=== PATIENT | male | born 1930 | race Caucasian/White ===

== ENCOUNTER 2017-10-17 22:48 | Emergency (ER) | payer MEDICARE, BC ==
[~2017-10-17] VITALS: Ht 165.1 cm; Wt 72.6 kg
[~2017-10-17 22:48] MED LIST: Z.0.ATENOLOL25 MG; Z.0.CRESTOR40 MG; Z.0.OMEPRAZOLE20 MG; Z.1.METFORMIN HCL100; cholecalciferol
[2017-10-17] MEDS ORDERED: LABETALOL HCL IV 5 MG/ML 20ML MDV IV STA (23:12)
[2017-10-17] MEDS ORDERED: OXYMETAZOLINE HCL 0.05% NAS 1 SPRAY BTL ONE (23:30)
[2017-10-17 23:32] LABS: BASOPHILS # (AUTO) 0.1 (0.0-0.1); EOSINOPHILS # (AUTO) 0.1 (0.0-0.4); EOSINOPHILS % 2.1 % (0.0-6.0); HEMATOCRIT 41.1 % (38.2-49.6); HEMOGLOBIN 13.9 g/dL (14.0-18.0); LYMPHOCYTES % 34.8 % (18.0-39.1); MEAN CORPUSCULAR HEMOGLOBIN 30.9 pg (28-32); MEAN CORPUSCULAR HGB CONC 33.8 g/dL (31-35); MEAN CORPUSCULAR VOLUME 91.3 fL (81-99); MONOCYTES # (AUTO) 0.5 (0.2-0.8); MONOCYTES % 8.4 % (4.4-11.3); NEUTROPHILS # (AUTO) 3.1 (2.1-6.9); NEUTROPHILS % 53.2 % (38.7-80.0); PLATELET COUNT 161 x10e3/uL (140-360); RED CELL DISTRIBUTION WIDTH 14.7 % (11.7-14.4)
[2017-10-17 23:36] LABS: INR 1.37; PROTHROMBIN TIME 17.6 seconds (11.9-14.5)
[2017-10-17 23:37] LABS: PARTIAL THROMBOPLASTIN TIME 38.7 seconds (23.8-35.5)
[2017-10-17 23:44] LABS: ALANINE AMINOTRANSFERASE 24 IU/L (0-55); ALBUMIN 3.9 g/dL (3.5-5.0); ALBUMIN/GLOBULIN RATIO 1.1 (0.8-2.0); ALKALINE PHOSPHATASE 60 IU/L (40-150); ANION GAP 15.2 mmol/L (8-16); BLOOD UREA NITROGEN 18 mg/dL (7-26); BUN/CREATININE RATIO 18 (6-25); CALCIUM 9.4 mg/dL (8.4-10.2); CARBON DIOXIDE 26 mmol/L (22-29); CHLORIDE 103 mmol/L (98-107); CREATINE KINASE 72 IU/L (30-200); CREATININE, SERUM 1.01 mg/dL (0.72-1.25); EST GLOMERULAR FILTRATION RATE > 60 ML/MIN (60-); GLUCOSE 234 mg/dL (74-118); POTASSIUM 3.2 mmol/L (3.5-5.1); SODIUM 141 mmol/L (136-145)
[2017-10-17 23:50] LABS: TROPONIN I 0.011 ng/mL (0-0.300)
--- NOTE | 2017-10-17 23:52 | Diagnostic Imaging Report ---
EXAM: CHEST SINGLE (PORTABLE), AP 1 view DATE: 10/17/2017 11:12 PM Time stamp on exam: 2012 INDICATION: Epistaxis COMPARISON: AP view of the chest July 03, 2010 FINDINGS: LINES/TUBES: None LUNGS: No consolidations or edema. Stable left lower lobe scarring. PLEURA: No effusions or pneumothorax. HEART AND MEDIASTINUM: Normal size and contour. BONES AND SOFT TISSUES: No acute findings. Median sternotomy wires, stable appearance. IMPRESSION: No acute thoracic abnormality. Signed by: Dr. Amada Simmons M.D. on 10/17/2017 11:48 PM
[2017-10-17] MEDS ORDERED: POTASSIUM CHLORIDE 20 MEQ TAB CR PO STA (23:59)
== END 2017-10-18 00:47 | disposition home or self-care (01) ==
LOC: ER 22:48
DX: R04.0 Epistaxis (principal); I10 Essential (primary) hypertension; E11.9 Type 2 diabetes mellitus without complications; I48.91 Unspecified atrial fibrillation; I51.9 Heart disease, unspecified; Z95.1 Presence of aortocoronary bypass graft; Z85.828 Personal history of other malignant neoplasm of skin; Z87.891 Personal history of nicotine dependence
CPT/HCPCS: 36415; 71010; 80053; 82550; 82553; 83735; 84484; 85025; 85610; 85730; 93005; 99283; J3490

== ENCOUNTER 2017-11-07 23:45 | Emergency (ER) | payer MEDICARE, BC ==
[~2017-11-07] VITALS: Ht 165.1 cm; Wt 72.6 kg
[2017-11-08] MEDS ORDERED: CLONIDINE HCL 0.2 MG TAB ONE (00:11)
[2017-11-08] MEDS ORDERED: CLONIDINE HCL 0.2 MG TAB PO ONE (00:15)
[2017-11-08 01:21] VITALS: BP 121/58
== END 2017-11-08 01:25 | disposition home or self-care (01) ==
LOC: ER 23:45
DX: I10 Essential (primary) hypertension (principal); E11.9 Type 2 diabetes mellitus without complications; I48.91 Unspecified atrial fibrillation
CPT/HCPCS: 99282

== ENCOUNTER 2017-11-29 19:47 | Emergency (ER) | payer MEDICARE, BC ==
[~2017-11-29] VITALS: Ht 165.1 cm; Wt 72.6 kg
--- OUTSIDE RECORDS SUMMARY | 2017-11-29 19:50 | XMS REPORT | Clinical Summary ---
Author Author [facility] Organization [facility] Address Unknown Phone Unavailable Care Team Providers Care Staff Internist Office Based Only Name Role Phone Abe Najera MD PCP Allergies Active Allergy Reactions Severity Noted Date Comments Ciprofloxacin Hcl Swelling High 05/22/2016 Codeine Other (See Comments) High 05/22/2016 Pt state he breaks out in spots Aspartame Other (See Comments) 05/27/2017 vertigo Current Medications Prescription Sig. Disp. Refills Start End Date Status Date amIODarone (PACERONE) 200 Take 200 mg by mouth Active MG tablet daily. atorvastatin (LIPITOR) 80 Take 80 mg by mouth Active MG tablet daily. omeprazole (PriLOSEC) 20 Take 20 mg by mouth Active MG capsule daily. metFORMIN (GLUCOPHAGE) Take 500 mg by mouth 2 Active 500 mg tablet (two) times a day with meals. VIT B COMPLEX Take by mouth. Active NO.12/NIACIN,B3, (VITAMIN B COMPLEX NO.12-NIACIN ORAL) traZODone (DESYREL) 50 MG Take 50 mg by mouth Active tablet nightly as needed for sleep. furosemide (LASIX) 40 mg Take 40 mg by mouth 2 Active tablet (two) times a day. rivaroxaban (XARELTO) 20 Take 20 mg by mouth. Active mg tablet atenolol (TENORMIN) 25 MG Take 25 mg by mouth 2 06/03/20 Discontin tablet (two) times a day. 17 ued hydrALAZINE (APRESOLINE) Take 1 tablet (10 mg 30 tablet 0 10/01/20 10/16/20 10 MG tablet total) by mouth 2 (two) 17 17 times a day for 15 days. Active Problems No known active problems Encounters Date Type Specialty Care Team Description 10/01/2017 Emergency Emergency Medicine Jayson Hoover MD Secondary hypertension (Primary Dx) 06/01/2017 Hospital Procedural Cardiology Meseret Geller MD Encounter for Encounter cardioversion procedure;Persistent atrial fibrillation 06/01/2017 Hospital Procedural Cardiology Meseret Geller MD Encounter 06/01/2017 Anesthesia Procedural Cardiology Duane Gallagher Event MD 06/01/2017 Ancillary Procedural Cardiology Meseret Geller MD Encounter for Orders cardioversion procedure 06/01/2017 Procedure Pass Procedural Cardiology 06/01/2017 Surgery Procedural Cardiology Meseret Geller MD Ep cardioversion w eric [36351 (CPT )] 05/27/2017 Hospital Radiology Meseret Geller MD Encounter 05/27/2017 Pre-Admit Pre-Admission Testing Meseret Geller MD Persistent atrial Testing fibrillation (Primary Dx) Appointment after 11/28/2016 Family History Medical History Relation Name Comments Heart disease Mother Relation Name Status Comments Father Alive Mother Alive Social History Tobacco Use Types Packs/Day Years Used Date Former Smoker 0 Smokeless Tobacco: Never Used Tobacco Cessation: Counseling Given: Yes Alcohol Use Drinks/Week oz/Week Comments No Sex Assigned at Date Recorded Not on file Last Filed Vital Signs Vital Sign Reading Time Taken Blood Pressure 200/89 10/01/2017 4:45 PM RETAIL PERFORMANCE SPECIALIST Pulse 84 10/01/2017 4:45 PM RETAIL PERFORMANCE SPECIALIST Temperature 37.2 C (98.9 F) 10/01/2017 2:47 PM RETAIL PERFORMANCE SPECIALIST Respiratory Rate 35 10/01/2017 4:45 PM RETAIL PERFORMANCE SPECIALIST Oxygen Saturation 98% 10/01/2017 4:45 PM RETAIL PERFORMANCE SPECIALIST Inhaled Oxygen - - Concentration Weight 75.8 kg (167 lb) 10/01/2017 2:50 PM RETAIL PERFORMANCE SPECIALIST Height 165.1 cm (5' 5") 10/01/2017 2:50 PM RETAIL PERFORMANCE SPECIALIST Body Mass Index 27.79 10/01/2017 2:50 PM RETAIL PERFORMANCE SPECIALIST Plan of Treatment Health Maintenance Due Date Last Done Comments ZOSTER VACCINE 1992 PNEUMOCOCCAL 1997 POLYSACCHARIDE VACCINE AGE 65 AND OVER PNEUMOCOCCAL-13 1997 INFLUENZA VACCINE 05/25/2017 Procedures Procedure Name Priority Date/Time Associated Diagnosis Comments ME CRITICAL CARE, E/M Routine 10/01/2017 Results for this 30-74 MINUTES 9:28 PM RETAIL PERFORMANCE SPECIALIST procedure are in the results section. EP CARDIOVERSION W ERIC Routine 06/01/2017 Results for this 10:41 AM CDT procedure are in the results section. ECHOCARDIOGRAM Routine 06/01/2017 Encounter for Results for this TRANSESOPHAGEAL W 10:30 AM CDT cardioversion procedure procedure are in the [facility] results section. after 11/28/2016 Results * ECG ED Preliminary Interpretation - NOT AN ORDER (10/01/2017 9:28 PM) Narrative Jayson Hoover MD 10/01/20179:28 PM ECG ED Preliminary Interpretation - Not an Order Performed by: JAYSON HOOVER Authorized by: JAYSON HOOVER ECG reviewed by ED Physician in the absence of a post tensioning ironworker helper: yes Interpretation: Interpretation: normal Rate: ECG rate:83 ECG rate assessment: normal Rhythm: Rhythm: sinus rhythm Ectopy: Ectopy: none QRS: QRS axis:Normal Conduction: Conduction: normal ST segments: ST segments:Normal T waves: T waves: inverted Inverted:III * Critical Care (10/01/2017 9:28 PM) Narrative Jayson Hoover MD 10/01/20179:28 PM Critical Care Performed by: JAYSON HOOVER Authorized by: JAYSON HOOVER Critical care provider statement: Critical care time (minutes):33 Critical care time was exclusive of:Separately billable procedures and treating other patients Critical care was necessary to treat or prevent imminent or life-threatening deterioration of the following conditions:Circulatory failure Critical care was time spent personally by me on the following activities:Development of treatment plan with patient or surrogate, discussions with primary provider, evaluation of patient's response to treatment, examination of patient, obtaining history from patient or surrogate, re-evaluation of patient's condition, pulse oximetry, ordering and review of radiographic studies, ordering and review of laboratory studies and ordering and performing treatments and interventions Mickey 'yes' if you are taking over critical care for this patient from another provider.: no * Estimated GFR (10/01/2017 3:16 PM) Only the most recent of 2 results within the time period is included. Component Value Ref Range GFR Non Af Amer 71 mL/min/1.73 m2 GFR Af Amer 86 mL/min/1.73 m2 Comment: Chronic kidney disease: <60 mL/min/1.73m2 Kidney failure: <15 mL/min/1.73m2 The estimated GFR is calculated from the IDMS-traceable Modification of Diet in Renal Disease Equation. The accuracy of the calculation is poor when the creatinine is normal. Calculated values >90 mL/min/1.73m2 are not reported. This equation has not been validated in children (<18 years), women, the elderly (>70 years), or ethnic groups other than Caucasians and Americans. Specimen Performing Laboratory Plasma specimen [facility] DEPARTMENT OF PATHOLOGY AND [facility] [address] [place] [address] * Troponin (10/01/2017 3:16 PM) Component Value Ref Range Troponin <0.300 0.000 - 0.300 ng/mL Comment: 0.30 - 1.49 ng/ml May indicate increased risk of acute coronary syndrome. >=1.5 ng/ml Consistent with acute myocardial infarction. The diagnostic value of a single normal or non-diagnostic result is questionable. Serial samples at 2-6 hour intervals are required to rule out acute myocardial injury. Specimen Performing Laboratory Plasma specimen [facility] PATHOLOGY AND [facility] [address] [place] [address] * CBC with platelet and differential (10/01/2017 3:16 PM) Component Value Ref Range WBC 5.39 4.50 - 11.00 k/uL RBC 4.16 (L) 4.40 - 6.00 m/uL HGB 12.5 (L) 14.0 - 18.0 g/dL HCT 37.2 (L) 41.0 - 51.0 % MCV 89.4 82.0 - 100.0 fL MCH 30.0 27.0 - 34.0 pg MCHC 33.6 31.0 - 37.0 g/dL RDW - SD 49.0 37.0 - 55.0 fL MPV 10.2 8.8 - 13.2 fL Platelet count 143 (L) 150 - 400 k/uL Nucleated RBC 0.00 /100 WBC Neutrophils 56.9 39.0 - 69.0 % Lymphocytes 30.1 25.0 - 45.0 % Monocytes 9.1 0.0 - 10.0 % Eosinophils 2.6 0.0 - 5.0 % Basophils 0.9 0.0 - 1.0 % Immature granulocytes 0.4Comment: "Immature granulocytes" 0.0 - 1.0 % (promyelocytes, myelocytes, metamyelocytes) Specimen Performing Laboratory Blood [facility] DEPARTMENT OF PATHOLOGY AND [facility]OMIC MEDICINE [address] [place] [address] * Basic metabolic panel (10/01/2017 3:16 PM) Component Value Ref Range Sodium 140 135 - 148 mEq/L Potassium 4.0 3.5 - 5.0 mEq/L Chloride 101 98 - 112 mEq/L CO2 24 24 - 31 mEq/L Anion gap 15 7 - 15 mEq/L Comment: Starting from January , anion gap calculation no longer incorporates potassium. Please note the change. BUN 22 8 - 23 mg/dL Creatinine 1.0 0.7 - 1.2 mg/dL Glucose 200 (H) 65 - 99 mg/dL Calcium 9.3 8.8 - 10.2 mg/dL Specimen Performing Laboratory Plasma specimen [facility] DEPARTMENT OF PATHOLOGY AND GENOMIC MEDICINE [address] [place] [address] [place] [address] * ECG 12 lead (10/01/2017 2:55 PM) Only the most recent of 2 results within the time period is included. Component Value Ref Range Ventricular rate 83 Atrial rate 83 ME interval 186 QRSD interval 88 QT interval 408 QTC interval 479 P axis 1 77 QRS axis 1 52 T wave axis -9 EKG impression Normal sinus rhythm-Cannot rule out Anterior infarct , age undetermined-Abnormal ECG-In automated comparison with ECG of 27-MAY-2017 14:11,-Sinus rhythm has replaced Atrial fibrillation- Specimen Performing Laboratory [facility] [address] [place] [address] * Cv electrophysiology procedure (06/01/2017 10:41 AM) Specimen Performing Laboratory [facility] [address] [place] [address] Narrative No evidence of JANNY or LA thrombus * Echocardiogram transesophageal (06/01/2017 10:30 AM) Specimen Performing Laboratory [facility] [address] [place] [address] Narrative The left ventricle chamber size is normal. Right ventricular size is normal. No pericardial effusion Structurally normal mitral valve. Structurally normal tricuspid valve. Structurally normal pulmonic valve. LA size is normal. The left atrium size by volume is normal. The left atrial appendage appears normal. The inter-atrial septum is normal. There is no evidence of patent foramen ovale. * POC glucose (06/01/2017 8:49 AM) Component Value Ref Range POC glucose 152 (H) 65 - 99 mg/dL Specimen Performing Laboratory [facility] DEPARTMENT OF PATHOLOGY AND GENOMIC MEDICINE [address] [place] [address] * Partial thromboplastin time, activated (06/01/2017 8:17 AM) Only the most recent of 2 results within the time period is included. Component Value Ref Range PTT 41.0 (H) 23.0 - 36.0 sec Comment: PTT therapeutic range for unfractionated heparin is 61.0-112.0 seconds which corresponds to Anti-Xa 0.3-0.7 U/ml. Specimen Performing Laboratory Blood [facility] DEPARTMENT OF PATHOLOGY AND [facility] MEDICINE [address] [place] [address] [place] [address] * Prothrombin time with INR (06/01/2017 8:17 AM) Only the most recent of 2 results within the time period is included. Component Value Ref Range Prothrombin time 32.5 (H) 12.0 - 15.0 sec INR 3.1 Comment: The International Normalized Ratio (INR) is a therapeutic monitoring tool for patients who are stable on oral anticoagulant therapy. An INR of 2.0-3.0 is suggested for deep vein thrombosis/pulmonary embolism. Specimen Performing Laboratory Blood [facility] DEPARTMENT OF PATHOLOGY AND [facility] [address] [place] [address] [place] [address] * XR Chest 2 Vw (05/27/2017 2:37 PM) Specimen Performing Laboratory [facility] [address] [place] [address] Narrative EXAMINATION:XR CHEST 2 VW CLINICAL HISTORY:I48.1 Persistent atrial fibrillation, preop COMPARISON:None Chest AP portable dated May 27, 2017, time 1423 hours: Heart is enlarged. Changes from a sternotomy are noted. The mediastinum is unremarkable. There is scarring or atelectasis at the lung bases. There is a small amount of pleural fluid bilaterally. IMPRESSION: 1. Clinically, bibasilar atelectasis or scarring with small bilateral pleural fluid. 2. Mildly increased pulmonary vasculature suggesting mild interstitial edema [id number] Procedure Note Hm Interface, Radiology Results Incoming - 05/27/2017 2:55 PM CDT EXAMINATION: XR CHEST 2 VW CLINICAL HISTORY: I48.1 Persistent atrial fibrillation, preop COMPARISON: None Chest AP portable dated May 27, 2017, time 1423 hours: Heart is enlarged. Changes from a sternotomy are noted. The mediastinum is unremarkable. There is scarring or atelectasis at the lung bases. There is a small amount of pleural fluid bilaterally. IMPRESSION: 1. Clinically, bibasilar atelectasis or scarring with small bilateral pleural fluid. 2. Mildly increased pulmonary vasculature suggesting mild interstitial edema [id number] * CBC hemogram (05/27/2017 1:48 PM) Component Value Ref Range WBC 6.96 4.50 - 11.00 k/uL RBC 3.85 (L) 4.40 - 6.00 m/uL HGB 9.2 (L) 14.0 - 18.0 g/dL HCT 30.9 (L) 41.0 - 51.0 % MCV 80.3 (L) 82.0 - 100.0 fL MCH 23.9 (L) 27.0 - 34.0 pg MCHC 29.8 (L) 31.0 - 37.0 g/dL RDW - SD 50.1 37.0 - 55.0 fL MPV 11.0 8.8 - 13.2 fL Platelet count 185 150 - 400 k/uL Nucleated RBC 0.00 /100 WBC Specimen Performing Laboratory Blood [facility] DEPARTMENT OF PATHOLOGY AND GENOMIC MEDICINE [address] [place] [address] * Comprehensive metabolic panel (05/27/2017 1:48 PM) Component Value Ref Range Sodium 142 135 - 148 mEq/L Potassium 3.9 3.5 - 5.0 mEq/L Chloride 99 98 - 112 mEq/L CO2 29 24 - 31 mEq/L Anion gap 14 7 - 15 mEq/L Comment: Starting from January , anion gap calculation no longer incorporates potassium. Please note the change. BUN 23 8 - 23 mg/dL Creatinine 0.8 0.7 - 1.2 mg/dL Glucose 126 (H) 65 - 99 mg/dL Calcium 9.8 8.8 - 10.2 mg/dL Protein 7.1 6.3 - 8.3 g/dL Comment: [place] 4.6-7.0 g/dL 1 week 4.4-7.6 g/dL 7 months-1year 5.1-7.3 g/dL 1-2 years 5.6-7.5 g/dL >3 years 6.0-8.0 g/dL 18-150 6.3-8.3 g/dL Albumin 4.3 3.5 - 5.0 g/dL A/G ratio 1.5 0.7 - 3.8 Alkaline phosphatase 65 40 - 129 U/L AST 28 10 - 50 U/L ALT 45 5 - 50 U/L Total bilirubin 0.6 0.0 - 1.2 mg/dL Specimen Performing Laboratory Plasma specimen [facility] DEPARTMENT OF PATHOLOGY AND GENOMIC MEDICINE [address] [place] [address] after 11/28/2016 Insurance Payer Benefit Subscriber ID Type Phone Address Plan / Group MEDICARE MEDICARE [id number] Medicare [place], [place] PART A AND B BCBS BCBS [id number] PPO CHOICE PPO/[place] [address]
--- OUTSIDE RECORDS SUMMARY | 2017-11-29 19:50 | XMS REPORT ---
Author Author [facility] Address Unknown Phone Unavailable Care Team Providers Care Oncology Rn Name Role Phone TISH JOHNSON Unavailable Unavailable Problems This patient has no known problems. Allergies, Adverse Reactions, Alerts This patient has no known allergies or adverse reactions. Medications This patient has no known medications. Results Test Description Test Time Test Comments Text Results Atomic Results Result Comments CHEST SINGLE (PORTABLE) [address] [address] Patient Name: ELHAM CLEMENTE MR #: [id number] : 1930 Age/Sex: 86/M Req #: [id number] Adm Physician: Ordered by: TISH JOHNSON MD Report #: [id number] Location: ER Room/Bed: Procedure: [id number] DX/CHEST SINGLE (PORTABLE) Exam Date: 10/17/17 Exam Time: 2230 REPORT STATUS: Signed EXAM: CHEST SINGLE (PORTABLE), AP 1 view DATE: 10/17/2017 11:12 PM Time stamp on exam: 2011 INDICATION: Epistaxis COMPARISON: AP view of the chest July 03, 2010 FINDINGS: LINES/TUBES: None LUNGS: No consolidations or edema. Stable left lower lobe scarring. PLEURA: No effusions or pneumothorax. HEART AND MEDIASTINUM: Normal size and contour. BONES AND SOFT TISSUES: No acute findings. Median sternotomy wires, stable appearance. IMPRESSION: No acute thoracic abnormality. Signed by: Dr. Lalo Bledsoe M.D. on 10/17/2017 11:48 PM Dictated By: LALO BLEDSOE MD 49 Transcribed By: CHARI on 10/17/172347 COPY TO: TISH JOHNSON MD
[2017-11-29] MEDS ORDERED: LIDOCAINE 1% W/EPINEPHRINE 20 ML VIAL ONE (20:57)
[2017-11-29] MEDS ORDERED: CLONIDINE HCL 0.1 MG TAB PO ONE ×2 (21:00→21:15)
[2017-11-29] MEDS ORDERED: CLONIDINE HCL 0.1 MG TAB ONE (21:02)
[2017-11-29] MEDS ORDERED: LIDOCAINE 1% W/EPINEPHRINE 20 ML VIAL INJ ONE (21:15)
[2017-11-29 21:44] VITALS: BP 158/75
== END 2017-11-29 21:45 | disposition home or self-care (01) ==
LOC: ER 19:47
DX: K91.840 Postprocedural hemorrhage of a digestive system organ or structure following a digestive system procedure (principal); I10 Essential (primary) hypertension
CPT/HCPCS: 99282

== ENCOUNTER 2017-11-30 00:36 | Emergency (ER) | payer MEDICARE, BC ==
[~2017-11-30] VITALS: Ht 165.1 cm; Wt 72.6 kg
--- OUTSIDE RECORDS SUMMARY | 2017-11-30 00:38 | XMS REPORT | Clinical Summary ---
Author Author [facility] Address Unknown Phone Unavailable Care Team Providers Care Green End Worker Name Role Phone Abe Najera MD PCP [...] Meseret Geller MD Ep cardioversion w eric [37984 (CPT )] 05/27/2017 Hospital Radiology Meseret Geller MD Encounter 05/27/2017 Pre-Admit Pre-Admission Testing Meseret Geller MD Persistent atrial Testing fibrillation (Primary Dx) Appointment after 11/29/2016 Family History Medical History Relation Name Comments [...] Taken Blood Pressure 200/89 10/01/2017 4:45 PM PRINTER ASSISTANT Pulse 84 10/01/2017 4:45 PM PRINTER ASSISTANT Temperature 37.2 C (98.9 F) 10/01/2017 2:47 PM PRINTER ASSISTANT Respiratory Rate 35 10/01/2017 4:45 PM PRINTER ASSISTANT Oxygen Saturation 98% 10/01/2017 4:45 PM PRINTER ASSISTANT Inhaled Oxygen - - Concentration Weight 75.8 kg (167 lb) 10/01/2017 2:50 PM PRINTER ASSISTANT Height 165.1 cm (5' 5") 10/01/2017 2:50 PM PRINTER ASSISTANT Body Mass Index 27.79 10/01/2017 2:50 PM PRINTER ASSISTANT Plan of Treatment Health Maintenance Due Date Last Done Comments ZOSTER VACCINE 1992 PNEUMOCOCCAL 1997 POLYSACCHARIDE VACCINE AGE 65 AND OVER PNEUMOCOCCAL-13 1997 INFLUENZA VACCINE 05/25/2017 Procedures Procedure Name Priority Date/Time Associated Diagnosis Comments [place] CRITICAL CARE, E/M Routine 10/01/2017 Results for this 30-74 MINUTES 9:28 PM PRINTER ASSISTANT procedure are in the results section. EP CARDIOVERSION W ERIC Routine 06/01/2017 Results for this 10:41 AM CDT procedure are in the results section. ECHOCARDIOGRAM Routine 06/01/2017 Encounter for Results for this TRANSESOPHAGEAL W 10:30 AM CDT cardioversion procedure procedure are in the AGITATED SALINE results section. after 11/29/2016 Results * ECG ED Preliminary Interpretation - NOT AN ORDER (10/01/2017 9:28 PM) Narrative Jayson Hoover MD 10/01/20179:28 PM ECG ED Preliminary Interpretation - Not an Order Performed by: JAYSON HOOVER Authorized by: JAYSON HOOVER ECG reviewed by ED Physician in the absence of a nitro worker: yes Interpretation: Interpretation: normal Rate: ECG rate:83 [...] and Americans. Specimen Performing Laboratory Plasma specimen [facility] DEPARTMENT OF PATHOLOGY AND [employer] MEDICINE [address] [place] [address] * Troponin (10/01/2017 3:16 PM) Component Value [...] myocardial injury. Specimen Performing Laboratory Plasma specimen [facility] PATHOLOGY AND [facility] [address] [place] [address] * CBC with platelet and differential (10/01/2017 [...] (promyelocytes, myelocytes, metamyelocytes) Specimen Performing Laboratory Blood [facility] DEPARTMENT OF PATHOLOGY AND GENOMIC MEDICINE [address] [place] [address] * Basic metabolic panel (10/01/2017 3:16 PM) [...] 10.2 mg/dL Specimen Performing Laboratory Plasma specimen [facility] DEPARTMENT OF PATHOLOGY AND GENOMIC MEDICINE [address] [place] [address] [place] [address] * ECG 12 lead (10/01/2017 2:55 PM) Only the most recent of 2 results within the time period is included. Component Value Ref Range Ventricular rate 83 Atrial rate 83 MN interval 186 QRSD interval 88 QT interval 408 QTC interval 479 P axis 1 77 QRS axis 1 52 T wave axis -9 EKG impression Normal sinus rhythm-Cannot rule out Anterior infarct , age undetermined-Abnormal ECG-In automated comparison with ECG of 27-MAY-2017 14:11,-Sinus rhythm has replaced Atrial fibrillation- Specimen Performing Laboratory [facility] M[facility] [address] [place] [address] * Cv electrophysiology procedure (06/01/2017 10:41 AM) Specimen Performing Laboratory [facility] [address] [place] [address] Narrative No evidence of JANNY or LA thrombus * Echocardiogram transesophageal (06/01/2017 10:30 AM) Specimen Performing Laboratory [facility] [address] [place] [address] Narrative The left ventricle chamber size is [...] 65 - 99 mg/dL Specimen Performing Laboratory [facility] DEPARTMENT OF PATHOLOGY AND GENOMIC MEDICINE [address] [place] [address] * Partial thromboplastin time, activated (06/01/2017 8:17 AM) Only the most recent of 2 results within the time period is included. Component Value Ref Range PTT 41.0 (H) 23.0 - 36.0 sec Comment: PTT therapeutic range for unfractionated heparin is 61.0-112.0 seconds which corresponds to Anti-Xa 0.3-0.7 U/ml. Specimen Performing Laboratory Blood [facility] DEPARTMENT OF PATHOLOGY AND [facility] MEDICINE [address] [place] [address] [place] [address] * Prothrombin time with INR (06/01/2017 8:17 [...] vein thrombosis/pulmonary embolism. Specimen Performing Laboratory Blood [facility] DEPARTMENT OF PATHOLOGY AND [facility] [address] [place] [address] [place] [address] * XR Chest 2 Vw (05/27/2017 2:37 PM) Specimen Performing Laboratory [facility] [address] [place] [address] Narrative EXAMINATION:XR CHEST 2 VW CLINICAL HISTORY:I48.1 [...] increased pulmonary vasculature suggesting mild interstitial edema [id number] Procedure Note Hm Interface, Radiology Results Incoming [...] increased pulmonary vasculature suggesting mild interstitial edema [id number] * CBC hemogram (05/27/2017 1:48 PM) Component [...] 0.00 /100 WBC Specimen Performing Laboratory Blood [facility] DEPARTMENT OF PATHOLOGY AND GENOMIC MEDICINE [address] [place] [address] * Comprehensive metabolic panel (05/27/2017 1:48 PM) [...] Protein 7.1 6.3 - 8.3 g/dL Comment: [place] 4.6-7.0 g/dL 1 week 4.4-7.6 g/dL 7 [...] 1.2 mg/dL Specimen Performing Laboratory Plasma specimen [facility] DEPARTMENT OF PATHOLOGY AND GENOMIC MEDICINE [address] [place] [address] after 11/29/2016 Insurance Payer Benefit Subscriber ID Type Phone Address Plan / Group MEDICARE MEDICARE [id number] Medicare [place], [place] PART A AND B BCBS BCBS [id number] PPO CHOICE PPO/MANJIT [place] [address]
--- OUTSIDE RECORDS SUMMARY | 2017-11-30 00:39 | XMS REPORT | Continuity of Care Document ---
Author Author [facility] Organization [facility] Address [address] [place] [address] Phone Unavailable Care Team Providers Care Manager Wholesale Name Role Phone NO, PCP PCP Unavailable Insurance Providers Guarantor Elham Clemente Address [address] [place] [address] [place] [address] Email NONE Payer [employer] Employees Policy Number [id number] Subscriber's Name Elham Clemente Relationship 18 Self / Same As Patient Group Number [id number] Group Name RETIRED Effective Date 10 Payer Medicare A & B Policy Number [id number] Subscriber's Name Elham Clemente Relationship 18 Self / Same As Patient Group Number [id number] Group Name RETIRED Effective Date 97 Advance Directives Directive Response Recorded Date/Time Does the patient have an advance directive? No 07/03/10 12:55am If yes, is advance directive on file with [facility]? No 07/03/10 12:55am If not on file with [facility] will patient provide a copy? Yes 12/21/16 4:21pm Do you have a Directive to Physician? No 11/29/17 9:24pm Do you have a Medical Power of Fire Patroller? No 11/29/17 9:24pm Do you have an out of hospital Do Not Resuscitate Order? No 11/29/17 9:24pm Do you have any special needs we should be aware of? No 11/29/17 9:24pm Do you have a support person here with you today? No 11/29/17 9:24pm Did patient receive Notice of Privacy Practices? Yes 11/29/17 9:24pm Did patient receive patient rights and responsibilities? Yes 11/29/17 9:24pm Problems Medical Problem Onset Date Status Allergic reaction caused by a drug Unknown Acute Medications Current Home Medications Medication Dose Units Route Directions Days Qty Instructions Start Date Atenolol 25 Mg Tablet Cholecalciferol Metformin Hcl 1,000 Mg Tablet Omeprazole 20 Mg Capsule. Rosuvastatin Calcium (Crestor) 40 Mg Tablet Social History Smoking Status Start Date Stop Date Never Smoker Hospital Discharge Instructions No hospital discharge instruction information available. Plan of Care Discharge Date 11/29/17 9:45pm Disposition HOME, SELF-CARE Condition at Discharge Stable Instructions/Education Provided Hypertension Forms Provided Work/School Excuse Prescriptions See Medication Section Referrals [facility] Address: [address] [place] [id number] Additional Instructions/Education 1.follow up with dentist in 1-2 days without fail 2. return to ed as needed Functional Status No functional status information available. Allergies, Adverse Reactions, Alerts Allergen Type Severity Reaction Status Last Updated Codeine Allergy Mild Active 07/03/10 Immunizations No immunization information available. Vital Signs Acute Vital Signs Vital Response Date/Time Temperature (Fahrenheit) 98.0 degrees F (97.6 - 99.5) 11/29/2017 9:44pm Pulse Pulse Rate (adult) 69 bpm (60 - 90) 11/29/2017 9:44pm Respiratory Rate 18 bpm (12 - 24) 11/29/2017 9:44pm Blood Pressure 158/75 mm Hg 11/29/2017 9:44pm Height 5 ft 5 in 11/29/2017 7:49pm Weight 160 lb 11/29/2017 7:49pm Body Mass Index 26.6 kg/m^2 11/29/2017 7:49pm Results Laboratory Results Test Name Result Units Flags Reference Collection Date/Time Result Date/ Time Comments White Blood Count 5.74 x10e3/uL 4.8-10.8 10/17/2017 11:05pm 10/17/2017 11:35pm Red Blood Count 4.50 x10e6/uL 4.3-5.7 10/17/2017 11:05pm 10/17/2017 11: 35pm Hemoglobin 13.9 g/dL L 14.0-18.0 10/17/2017 11:05pm 10/17/2017 11:35pm Hematocrit 41.1 % 38.2-49.6 10/17/2017 11:05pm 10/17/2017 11:35pm Mean Corpuscular Volume 91.3 fL 81-99 10/17/2017 11:05pm 10/17/2017 11: 35pm Mean Corpuscular Hemoglobin 30.9 pg 28-32 10/17/2017 11:05pm 2016 11:35pm Mean Corpuscular Hemoglobin Concent 33.8 g/dL 31-35 10/17/2017 11:05pm 10/17/2017 11:35pm Red Cell Distribution Width 14.7 % H 11.7-14.4 10/17/2017 11:05pm 2016 11:35pm Platelet Count 161 x10e3/uL 140-360 10/17/2017 11:05pm 10/17/2017 11: 35pm Neutrophils (%) (Auto) 53.2 % 38.7-80.0 10/17/2017 11:05pm 10/17/2017 11:35pm Lymphocytes (%) (Auto) 34.8 % 18.0-39.1 10/17/2017 11:05pm 10/17/2017 11:35pm Monocytes (%) (Auto) 8.4 % 4.4-11.3 10/17/2017 11:05pm 10/17/2017 11: 35pm Eosinophils (%) (Auto) 2.1 % 0.0-6.0 10/17/2017 11:05pm 10/17/2017 11: 35pm Basophils (%) (Auto) 1.0 % 0.0-1.0 10/17/2017 11:05pm 10/17/2017 11: 35pm IM GRANULOCYTES % 0.5 % 0.0-1.0 10/17/2017 11:05pm 10/17/2017 11:35pm Neutrophils # (Auto) 3.1 2.1-6.9 10/17/2017 11:05pm 10/17/2017 11: 35pm Lymphocytes # (Auto) 2.0 1.0-3.2 10/17/2017 11:05pm 10/17/2017 11: 35pm Monocytes # (Auto) 0.5 0.2-0.8 10/17/2017 11:05pm 10/17/2017 11:35pm Eosinophils # (Auto) 0.1 0.0-0.4 10/17/2017 11:05pm 10/17/2017 11: 35pm Basophils # (Auto) 0.1 0.0-0.1 10/17/2017 11:05pm 10/17/2017 11:35pm Absolute Immature Granulocyte (auto 0.03 x10e3/uL 0-0.1 10/17/2017 11: 05pm 10/17/2017 11:35pm Prothrombin Time 17.6 seconds H 11.9-14.5 10/17/2017 11:05pm 10/17/2017 11:41pm Prothromb Time International Ratio 1.37 10/17/2017 11:05pm 2016 11:41pm Oral Anticoagulant Therapy INR Values: 1. Low Intensity Therapy 1.5 - 2.0 2. Moderate Intensity Therapy 2.0 - 3.0 3. High Intensity Therapy(1) 2.5 - 3.5 4. High Intensity Therapy(2) 3.0 - 4.0 5. Panic Value INR > 5.0 Activated Partial Thromboplast Time 38.7 seconds H 23.8-35.5 10/17/2017 11:05pm 10/17/2017 11:41pm Sodium Level 141 mmol/L 136-145 10/17/2017 11:05pm 10/17/2017 11:52pm Potassium Level 3.2 mmol/L L 3.5-5.1 10/17/2017 11:05pm 10/17/2017 11: 52pm Chloride Level 103 mmol/L 98-107 10/17/2017 11:05pm 10/17/2017 11:52pm Carbon Dioxide Level 26 mmol/L 22-10/17/2017 11:05pm 10/17/2017 11: 52pm Anion Gap 15.2 mmol/L 8-10/17/2017 11:05pm 10/17/2017 11:52pm Blood Urea Nitrogen 18 mg/dL 710/17/2017 11:05pm 10/17/2017 11: 52pm Creatinine 1.01 mg/dL 0.72-1.25 10/17/2017 11:05pm 10/17/2017 11:52pm BUN/Creatinine Ratio 18 6-25 10/17/2017 11:05pm 10/17/2017 11:52pm Estimat Glomerular Filtration Rate > 60 ML/MIN 60- 10/17/2017 11:05pm 10/17/2017 11:52pm Ranges were taken from the National Kidney Disease Education Program and the National Kid[employer] literature. Reference ranges: 60 or greater: Normal 16-59 (for 3 consecutive months): Chronic kidney disease 15 or less: Kidney failure Glucose Level 234 mg/dL H 74-118 10/17/2017 11:05pm 10/17/2017 11:52pm Calcium Level 9.4 mg/dL 8.4-10.2 10/17/2017 11:05pm 10/17/2017 11:52pm Magnesium Level 2.0 MG/DL 1.3-2.1 10/17/2017 11:05pm 10/17/2017 11: 52pm Total Bilirubin 0.6 mg/dL 0.2-1.2 10/17/2017 11:05pm 10/17/2017 11: 52pm Aspartate Amino Transf (AST/SGOT) 18 IU/L 5-34 10/17/2017 11:05pm 10/17 11:52pm Alanine Aminotransferase (ALT/SGPT) 24 IU/L 0-55 10/17/2017 11:05pm 11:52pm Total Protein 7.5 g/dL 6.5-8.1 10/17/2017 11:05pm 10/17/2017 11:52pm Albumin 3.9 g/dL 3.5-5.0 10/17/2017 11:05pm 10/17/2017 11:52pm Globulin 3.6 g/dL H 2.3-3.5 10/17/2017 11:05pm 10/17/2017 11:52pm Albumin/Globulin Ratio 1.1 0.8-2.0 10/17/2017 11:05pm 10/17/2017 11: 52pm Alkaline Phosphatase 60 IU/L 40-150 10/17/2017 11:05pm 10/17/2017 11: 52pm Creatine Kinase 72 IU/L 30-200 10/17/2017 11:05pm 10/17/2017 11:52pm Creatine Kinase MB 1.40 ng/mL 0.00-5.00 10/17/2017 11:05pm 10/17/2017 11:52pm Troponin I 0.011 ng/mL 0-0.300 10/17/2017 11:05pm 10/17/2017 11:52pm Procedures No procedure information available. Encounters Encounter Location Arrival/Admit Date Discharge/Depart Date Attending Provider Departed Emergency Room [facility] 11/29/17 7:47pm 9:45pm JEMAL PASTRANA MD Departed Emergency Room [facility] 11/07/17 11:45pm 11/08 1:25am JEMAL PASTRANA MD Departed Emergency Room [facility] 10/17/17 10:48pm 10/18 12:47am TISH OJHNSON MD
== END 2017-11-30 00:45 | disposition home or self-care (01) ==
LOC: ER 00:36
DX: K91.840 Postprocedural hemorrhage of a digestive system organ or structure following a digestive system procedure (principal); I10 Essential (primary) hypertension; E11.9 Type 2 diabetes mellitus without complications; I48.91 Unspecified atrial fibrillation; E78.5 Hyperlipidemia, unspecified
CPT/HCPCS: 99282

== ENCOUNTER 2018-06-24 00:21 | Emergency (ER) | payer MEDICARE, BC ==
[~2018-06-24] VITALS: Ht 165.1 cm; Wt 72.6 kg
[2018-06-24] MEDS ORDERED: CLONIDINE HCL 0.1 MG TAB PO ONE (01:00)
[2018-06-24 01:40] LABS: BASOPHILS # (AUTO) 0.1 (0.0-0.1); BASOPHILS % 0.6 % (0.0-1.0); EOSINOPHILS # (AUTO) 0.2 (0.0-0.4); EOSINOPHILS % 1.6 % (0.0-6.0); HEMATOCRIT 37.7 % (38.2-49.6); HEMOGLOBIN 12.8 g/dL (14.0-18.0); LYMPHOCYTES # (AUTO) 1.6 (1.0-3.2); LYMPHOCYTES % 16.1 % (18.0-39.1); MEAN CORPUSCULAR HEMOGLOBIN 31.4 pg (28-32); MEAN CORPUSCULAR VOLUME 92.6 fL (81-99); MONOCYTES # (AUTO) 0.7 (0.2-0.8); MONOCYTES % 7.6 % (4.4-11.3); NEUTROPHILS # (AUTO) 7.2 (2.1-6.9); NEUTROPHILS % 73.4 % (38.7-80.0); PLATELET COUNT 149 x10e3/uL (140-360); RED BLOOD COUNT 4.07 x10e6/uL (4.3-5.7); RED CELL DISTRIBUTION WIDTH 14.9 % (11.7-14.4)
[2018-06-24 02:01] LABS: ALANINE AMINOTRANSFERASE 29 IU/L (0-55); ALBUMIN 3.7 g/dL (3.5-5.0); ALBUMIN/GLOBULIN RATIO 1.1 (0.8-2.0); ALKALINE PHOSPHATASE 72 IU/L (40-150); ANION GAP 16.6 mmol/L (8-16); BLOOD UREA NITROGEN 22 mg/dL (7-26); BUN/CREATININE RATIO 22 (6-25); CALCIUM 9.4 mg/dL (8.4-10.2); CARBON DIOXIDE 22 mmol/L (22-29); CHLORIDE 103 mmol/L (98-107); CREATININE, SERUM 0.98 mg/dL (0.72-1.25); EST GLOMERULAR FILTRATION RATE > 60 ML/MIN (60-); GLUCOSE 151 mg/dL (74-118); LIPASE 31 U/L (8-78); POTASSIUM 3.6 mmol/L (3.5-5.1); SODIUM 138 mmol/L (136-145)
[2018-06-24 02:59] VITALS: BP 160/70
== END 2018-06-24 03:01 | disposition home or self-care (01) ==
LOC: ER 00:21
DX: G44.219 Episodic tension-type headache, not intractable (principal); I10 Essential (primary) hypertension
CPT/HCPCS: 36415; 80053; 82948; 83690; 83880; 85025; 93005; 99283

== ENCOUNTER → 2018-09-02 | Outpatient (CLI) | payer MEDICARE, BC ==
[~2018-09-02] MED LIST changes: +CLONIDINE; +IOPAMIDOL 370 MG/ML 200 ML INFUS..BTL INJ ONE; +IRON; +LISINOPRIL; +METOPROLOL; +PACERONE; +SODIUM CHLORIDE 0.9% 250ML 0 ML ONE; +SODIUM CHLORIDE 0.9% 250ML 250 ML ONE; +XARELTO
[2018-09-02 12:24] LABS: BLOOD UREA NITROGEN 14 mg/dL (7-26); BUN/CREATININE RATIO 14 (6-25); CREATININE, SERUM 0.98 mg/dL (0.72-1.25); EST GLOMERULAR FILTRATION RATE > 60 ML/MIN (60-)
--- NOTE | 2018-09-02 14:09 | Diagnostic Imaging Report ---
EXAMINATION: CT of the abdomen and pelvis with and without contrast. TECHNIQUE: CT images of the abdomen and pelvis were performed from the lung bases to the lesser trochanters before and after the intravenous administration of 150 cc of Isovue 300 and the oral administration of none. Dose modulation, iterative reconstruction, and/or weight based adjustment of the mA/kV was utilized to reduce the radiation dose to as low as reasonably achievable. COMPARISON: None. CLINICAL HISTORY:Hematuria DISCUSSION: ABDOMEN/PELVIS: LOWER THORAX:Prominent heart size. Lung bases clear. HEPATOBILIARY: No focal hepatic lesions. No biliary ductal dilatation.Cholecystectomy. SPLEEN: No splenomegaly. PANCREAS: No focal masses or ductal dilatation. ADRENALS: No adrenal nodules. KIDNEYS/URETERS: 8 cm complex cyst extending from the superior pole of the left kidney. Thin peripheral calcification anteriorly with thin rim of renal tissue. 2.5 cm simple cyst extending from the inferior pole left kidney. 2.8 cm complex cyst extending from the interpolar region of the right kidney. Internal Hounsfield unit 40 on precontrast and same on postcontrast. No solid enhancing lesions. Left renal calculi measuring 0.6 cm and within the left renal pelvis measuring 0.7 cm. Mild chronic appearing hydronephrosis bilaterally. PELVIC ORGANS/BLADDER: Bladder is unremarkable. Prostate is enlarged measuring 5.2 cm. PERITONEUM/RETROPERITONEUM: No free air or fluid. LYMPH NODES: No intra-abdominal,retroperitoneal, pelvic or inguinal lymphadenopathy. VESSELS: The celiac trunk,superior and inferior mesenteric and bilateral renal arteries are patent The portal, superior mesenteric and splenic veins are patent. GI TRACT: Colonic diverticulosis without inflammatory change. No obstruction. BONES AND SOFT TISSUE: Multilevel lower lumbar spondylosis. IMPRESSION: Left renal calculi with a 7 mm calculus in the left renal pelvis. Mild chronic appearing bilateral hydronephrosis. Bilateral mildly complex renal cysts. Mild prostate hypertrophy. Signed by: Dr. Jesús Cisneros M.D. on 09/02/2018 2:05 PM
== END ==
LOC: CT 10:17
PROVIDERS: ATTEND Urology
DX: R31.0 Gross hematuria (principal)
CPT/HCPCS: 36415; 74178; 82565; 84520; J7050; Q9967

== ENCOUNTER → 2018-10-17 | Day surgery (SDC) | payer MEDICARE, BC ==
[2018-10-11 11:53] LABS: BASOPHILS % 0.7 % (0.0-1.0); EOSINOPHILS # (AUTO) 0.1 (0.0-0.4); EOSINOPHILS % 1.8 % (0.0-6.0); LYMPHOCYTES # (AUTO) 1.6 (1.0-3.2); LYMPHOCYTES % 26.3 % (18.0-39.1); MEAN CORPUSCULAR HEMOGLOBIN 31.9 pg (28-32); MEAN CORPUSCULAR HGB CONC 34.2 g/dL (31-35); MEAN CORPUSCULAR VOLUME 93.4 fL (81-99); MONOCYTES # (AUTO) 0.5 (0.2-0.8); MONOCYTES % 8.8 % (4.4-11.3); NEUTROPHILS # (AUTO) 3.8 (2.1-6.9); NEUTROPHILS % 62.1 % (38.7-80.0); PLATELET COUNT 146 x10e3/uL (140-360); RED BLOOD COUNT 4.07 x10e6/uL (4.3-5.7); RED CELL DISTRIBUTION WIDTH 14.5 % (11.7-14.4)
[2018-10-11 12:25] LABS: ANION GAP 14.4 mmol/L (8-16); BLOOD UREA NITROGEN 22 mg/dL (7-26); BUN/CREATININE RATIO 21 (6-25); CALCIUM 9.3 mg/dL (8.4-10.2); CARBON DIOXIDE 27 mmol/L (22-29); CHLORIDE 103 mmol/L (98-107); CREATININE, SERUM 1.05 mg/dL (0.72-1.25); EST GLOMERULAR FILTRATION RATE > 60 ML/MIN (60-); GLUCOSE 220 mg/dL (74-118); POTASSIUM 3.4 mmol/L (3.5-5.1); SODIUM 141 mmol/L (136-145)
--- NOTE | 2018-10-11 12:42 | Diagnostic Imaging Report ---
EXAMINATION: PA and lateral views of the chest. COMPARISON: Single view chest 10/17/2017 CLINICAL HISTORY: Preoperative study for urological procedure DISCUSSION: Interval placement of a left subclavian approach triple lead cardiac device. Leads project over the expected regions of the right atrium, right ventricle, and coronary sinus. Lungs remain well-inflated and without focal consolidation, pleural effusion, or pneumothorax. Stable cardiomediastinal contour with multiple median sternotomy wires and atherosclerotic calcification of the thoracic aorta. No overt pulmonary edema. Calcified granulomata in the left lung apex. No acute osseous abnormality. IMPRESSION: No acute cardiopulmonary abnormality. Signed by: Dr. Gustavo Gilbert M.D. on 10/11/2018 12:39 PM
[~2018-10-17] MED LIST changes: +BELLADONNA/OPIUM 30 MG SUPP RC ONE; +CEFTRIAXONE SOD 1 GM/NS 50 ML 50 ML IV ONE; +DEXAMETHASONE SOD PHOS INJ 4 MG/ML VIAL ONE; +FENTANYL CITRATE/PF 100MCG/2 ML INJ ONE; +HYDRALAZINE HCL 20 MG/ML VIAL ONE; -IOPAMIDOL 370 MG/ML 200 ML INFUS..BTL INJ ONE; +IOPAMIDOL 610MG/1ML 300 MG/ML VIAL IV ONE; +LIDOCAINE HCL 2% LOCAL INJ 5 ML SDV VIAL INJ ONE; +METOPROLOL TARTRATE INJ 1 MG/ML VIAL ONE; +ONDANSETRON HCL INJ 2MG/ML 2ML 2 MG/ML VIAL ONE; +PROPOFOL IV EMULSION 10 MG/ML 20 ML VIAL ONE; +SEVOFLURANE INHAL SOLN 250 ML PEN BTL ONE; -SODIUM CHLORIDE 0.9% 250ML 0 ML ONE; -SODIUM CHLORIDE 0.9% 250ML 250 ML ONE; +TRAMADOL HCL 50 MG TAB ONE
--- OUTSIDE RECORDS SUMMARY | 2018-10-17 09:53 | XMS REPORT | Continuity of Care Document ---
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 05/22/2014 [facility] HEARING LOSS Active 05/22/2014 [facility] Arthritis Resolved Problem 08/15/2014 [facility] Diabetes Resolved Problem 08/15/2014 [facility] Gastric reflux Resolved Problem 08/15/2014 [facility] Hyperlipidemia Resolved Problem 08/15/2014 [facility] Hypertension Resolved Problem 08/15/2014 [facility] Kidney stone Resolved Problem 08/15/2014 [facility] Allergic reaction caused by a drug Active Problem 06/24/2018 [facility] SENSORNEUR HEAR LOSS NOS Active [facility] TINNITUS NOS Active [facility] Medications Medication Details Route Status Patient Instructions Ordering Provider Order Date Source Ondansetron 4 mg, 2 mL, Route: IVP, Drug form: INJ, ONCE, Dosing Weight 72.727, kg, PRN Nausea & Vomiting, Start date: 08/13/14 12:37:00Notes: (Same as: [place]) Inactive 08/13/2014 [facility] Calcium Chloride 0.0014 MEQ/ML / Potassium Chloride 0.004 MEQ/ML / Sodium Chloride 0.103 MEQ/ML / Sodium Lactate 0.028 MEQ/ML Injectable Solution 1,000 mL, Rate: 125 ml/hr, Infuse over: 8 hr, Route: IV, Dosing Weight 72.727 kg, Total Volume: 1,000, Start date: 08/13/14 12:37:00, Duration: 30 day, Stop date: 09/12/14 12:36:00 Inactive 08/13/2014 [facility] Flumazenil 0.2 mg, 2 mL, Route: IVP, Drug form: INJ, PRN, Dosing Weight 72.727, kg, PRN Benzodiazepine Reversal, Initial dose, Start date: 08/13/14 12:37:00, Duration: 5 doses or times, Stop date: 08/14/14 0:00 :00Notes: (Same as: Romazicon) Inactive 08/13/2014 [facility] Naloxone 0.04 mg, 0.1 mL, Route: IVP, Drug form: INJ, Q2MIN, Dosing Weight 72.727, kg, PRN Narcotic Reversal, Start date: 08/13/14 12:37:00, Duration: 8 doses or times, Stop date: 08/14/14 0:00:00Notes: (Same as: Narcan) Inactive 08/13/2014 [facility] Hydromorphone 0.2 mg, 0.1 mL, Route: IVP, Drug form: INJ, Q5Min, Dosing Weight 72.727, kg, PRN Pain Score 7-10, Start date: 08/13/14 12:37:00, Duration: 4 doses or times, Stop date: 08/14/14 0:00:00Notes: Same as: Dilaudid Inactive 08/13/2014 [facility] ceFAZolin 2 gm, 50 mL, Route: IVPB, Drug form: INJ, PRE OP, Start date: 08/13/14 10:00:00, Duration: 1 doses or times, Stop date: 08/14/14 0:00:00 Inactive 08/13/2014 [facility] ceFAZolin 2 gm, 50 mL, Route: IVPB, Drug form: INJ, PRE OP, Start date: 08/12/14 23:00:00, Duration: 1 day, Stop date: 08/13/14 22:59:00 No Longer Active 08/13/2014 [facility] Hydrochlorothiazide 12.5 MG / Lisinopril 20 MG Oral Tablet 1 tab, PO, Daily, # 30 tab, 0 Refill(s) Active 08/10/2014 [facility] Amlodipine 10 mg, Daily, 0 Refill(s) Active 08/10/2014 [facility] loratadine 10 mg oral capsule 10 mg=1 cap, PO, Daily, # 10 cap, 0 Refill(s) Active 08/10/2014 [facility] Atenolol 25 MG Oral Tablet 25 mg=1 tab, PO, BID, # 60 tab, 0 Refill(s) Active 08/10/2014 [facility] omeprazole 20 mg oral delayed release capsule 20 mg=1 cap, PO, Daily, # 30 cap, 0 Refill(s) Active 08/10/2014 [facility] Metformin hydrochloride 500 MG Oral Tablet 500 mg=1 tab, PO, BID, # 30 tab, 0 Refill(s) Active 08/10/2014 [facility] B-12 0 Refill(s) Active 08/10/2014 [facility] propafenone 325 mg oral capsule, extended release 325 mg=1 cap, PO, Q12H, # 180 cap, 0 Refill(s) Active 08/10/2014 [facility] aspirin 81 mg, Daily, 0 Refill(s) Active 08/09/2014 [facility] Atenolol 25 Mg Tablet Active [facility] Cholecalciferol Active [facility] Metformin Hcl 1,000 Mg Tablet Active [facility] Omeprazole 20 Mg Capsule. Active [facility] Rosuvastatin Calcium (Crestor) 40 Mg Tablet Active [facility] Allergies, Adverse Reactions, Alerts Substance Category Reaction Severity Reaction type Status Date Reported Comments Source Codeine Mild Allergy to Substance Active 07/03/2010 [facility] Aspartame Unknown Allergy to Substance Active 06/24/2018 [facility] Ciprofloxacin HIVES Unknown Allergy to Substance Active 06/24/2018 [facility] codeine Assertion MO^Moderate Drug allergy Active [facility] Immunizations Immunization Date Given Site Status Last Updated Comments Source Results Order Name Results Value Reference Range Date Interpretation Comments Source Automated blood basophil count (count/volume) Automated blood basophil count (count/volume) 0.1 0.0 - 0.1 06/24/2018 [facility] Automated blood basophil count as percentage of total leukocytes Automated blood basophil count as percentage of total leukocytes 0.6 0.0 - 1.0 06/24/2018 [facility] Automated blood eosinophil count Automated blood eosinophil count 0.2 0.0 - 0.4 06/24/2018 [facility] Automated blood eosinophil count as percentage of total leukocytes Automated blood eosinophil count as percentage of total leukocytes 1.6 0.0 - 6.0 06/24/2018 [facility] Automated blood hematocrit (volume fraction) Automated blood hematocrit (volume fraction) 37.7 38.2 - 49.6 06/24/2018 [facility] Automated blood lymphocyte count as percentage ot total leukocytes Automated blood lymphocyte count as percentage ot total leukocytes 16.1 18.0 - 39.1 06/24/2018 [facility] Automated blood monocyte count as percentage of total leukocytes Automated blood monocyte count as percentage of total leukocytes 7.6 4.4 - 11.3 06/24/2018 [facility] Automated blood neutrophil count Automated blood neutrophil count 7.2 2.1 - 6.9 06/24/2018 [facility] Automated blood platelet count (count/volume) Automated blood platelet count (count/volume) 149 140 - 360 06/24/2018 [facility] Automated blood segmented neutrophil count as percentage of total leukocytes Automated blood segmented neutrophil count as percentage of total leukocytes 73.4 38.7 - 80.0 06/24/2018 [facility] Automated erythrocyte mean corpuscular hemoglobin (mass per erythrocyte) Automated erythrocyte mean corpuscular hemoglobin (mass per erythrocyte) 31.4 28 - 32 06/24/2018 [facility] Automated erythrocyte mean corpuscular hemoglobin concentration measurement (mass/volume) Automated erythrocyte mean corpuscular hemoglobin concentration measurement (mass/volume) 34.0 31 - 35 06/24/2018 [facility] Automated erythrocyte mean corpuscular volume Automated erythrocyte mean corpuscular volume 92.6 81 - 99 06/24/2018 [facility] Blood erythrocytes automated count (number/volume) Blood erythrocytes automated count (number/volume) 4.07 4.3 - 5.7 06/24/2018 [facility] Blood hemoglobin measurement (moles/volume) Blood hemoglobin measurement (moles/volume) 12.8 14.0 - 18.0 06/24/2018 [facility] Blood leukocytes automated count (number/volume) Blood leukocytes automated count (number/volume) 9.78 4.8 - 10.8 06/24/2018 [facility] Blood lymphocytes count (number/volume) Blood lymphocytes count (number/volume) 1.6 1.0 - 3.2 06/24/2018 [facility] Blood monocytes automated count (number/volume) Blood monocytes automated count (number/volume) 0.7 0.2 - 0.8 06/24/2018 [facility] Estimated glomerular filtration rate (GFR) determination Estimated glomerular filtration rate (GFR) determination null 60 06/24/2018 [facility] Glucose measurement Glucose measurement 151 74 - 118 06/24/2018 [facility] Plasma globulin measurement (mass/volume) Plasma globulin measurement (mass/volume) 3.4 2.3 - 3.5 06/24/2018 [facility] Serum or plasma alanine aminotransferase measurement (enzymatic activity/volume) Serum or plasma alanine aminotransferase measurement (enzymatic activity/volume) 29 0 - 55 06/24/2018 [facility] Serum or plasma albumin measurement (mass/volume) Serum or plasma albumin measurement (mass/volume) 3.7 3.5 - 5.0 06/24/2018 [facility] Serum or plasma albumin/globulin mass ratio Serum or plasma albumin/globulin mass ratio 1.1 0.8 - 2.0 06/24/2018 [facility] Serum or plasma alkaline phosphatase measurement (enzymatic activity/volume) Serum or plasma alkaline phosphatase measurement (enzymatic activity/volume) 72 40 - 150 06/24/2018 [facility] Serum or plasma anion gap Serum or plasma anion gap 16.6 8 - 16 06/24/2018 [facility] Serum or plasma calcium measurement (mass/volume) Serum or plasma calcium measurement (mass/volume) 9.4 8.4 - 10.2 06/24/2018 [facility] Serum or plasma carbon dioxide, total measurement (moles/volume) Serum or plasma carbon dioxide, total measurement (moles/volume) 22 22 - 29 06/24/2018 [facility] Serum or plasma chloride measurement (moles/volume) Serum or plasma chloride measurement (moles/volume) 103 98 - 107 06/24/2018 [facility] Serum or plasma creatinine measurement (mass/volume) Serum or plasma creatinine measurement (mass/volume) 0.98 0.72 - 1.25 06/24/2018 [facility] Serum or plasma lipase measurement (enzymatic activity/volume) Serum or plasma lipase measurement (enzymatic activity/volume) 31 8 - 78 06/24/2018 [facility] Serum or plasma potassium measurement (moles/volume) Serum or plasma potassium measurement (moles/volume) 3.6 3.5 - 5.1 06/24/2018 [facility] Serum or plasma protein measurement (mass/volume) Serum or plasma protein measurement (mass/volume) 7.1 6.5 - 8.1 06/24/2018 [facility] Serum or plasma sodium measurement (moles/volume) Serum or plasma sodium measurement (moles/volume) 138 136 - 145 06/24/2018 [facility] Serum or plasma total bilirubin measurement (mass/volume) Serum or plasma total bilirubin measurement (mass/volume) 0.8 0.2 - 1.2 06/24/2018 [facility] Serum or plasma urea nitrogen measurement (mass/volume) Serum or plasma urea nitrogen measurement (mass/volume) 22 7 - 26 06/24/2018 [facility] Serum or plasma urea nitrogen/creatinine mass ratio Serum or plasma urea nitrogen/creatinine mass ratio 22 6 - 25 06/24/2018 [facility] Red Cell Distribution Width 14.9 11.7 - 14.4 06/24/2018 [facility] IM GRANULOCYTES % 0.7 0.0 - 1.0 06/24/2018 [facility] Absolute Immature Granulocyte (auto 0.07 0 - 0.1 06/24/2018 [facility] Aspartate Amino Transf (AST/SGOT) 17 5 - 34 06/24/2018 [facility] B-Type Natriuretic Peptide 245.7 0 - 100 06/24/2018 [facility] Activated partial thromboplastin time (aPTT) in platelet poor plasma bycoagulation assay Activated partial thromboplastin time (aPTT) in platelet poor plasma bycoagulation assay 38.7 23.8 - 35.5 10/17/2017 [facility] INR in Platelet poor plasma by Coagulation assay INR in Platelet poor plasma by Coagulation assay 1.37 10/17/2017 [facility] Prothrombin time (PT) in platelet poor plasma by coagulation assay Prothrombin time (PT) in platelet poor plasma by coagulation assay 17.6 11.9 - 14.5 10/17/2017 [facility] Serum or plasma creatine kinase MB measurement (mass/volume) Serum or plasma creatine kinase MB measurement (mass/volume) 1.40 0.00 - 5.00 10/17/2017 [facility] Serum or plasma creatine kinase measurement (enzymatic activity/volume) Serum or plasma creatine kinase measurement (enzymatic activity/volume) 72 30 - 200 10/17/2017 [facility] Serum or plasma magnesium measurement (mass/volume) Serum or plasma magnesium measurement (mass/volume) 2.0 1.3 - 2.1 10/17/2017 [facility] Troponin I measurement by highly sensitive enzyme immunoassay Troponin I measurement by highly sensitive enzyme immunoassay 0.011 0 - 0.300 10/17/2017 [facility] CHEM PANEL Creatinine Lvl 0.8 mg/dL 0.5 - 1.4 08/13/2014 [facility] CHEM PANEL BUN 23 mg/dL 7 - 22 08/13/2014 [facility] CHEM PANEL Glucose Lvl 130 mg/dL 70 - 99 08/13/2014 3Interpretive Data: Adult reference range values reflect the clinical guidelines of the [place] [employer]. [facility] CHEM PANEL Chloride Lvl 107 meq/L 95 - 109 08/13/2014 [facility] CHEM PANEL Potassium Lvl 4.8 meq/L 3.5 - 5.1 08/13/2014 1Result Comment: Specimen Slightly Hemolyzed. [facility] CHEM PANEL Sodium Lvl 139 meq/L 135 - 145 08/13/2014 [facility] CHEM PANEL eGFR 84 mL/min/1.73m2 08/13/2014 2Result Comment: The eGFR is calculated using the CKD-EPI formula. In most young, healthy individuals the eGFR will be >90 mL/min/1.73m2. The eGFR declines with age. An eGFR of 60-89 may be normal in some populations, particularly the elderly, for whom the CKD-EPI formula has not been extensively validated. Use of the eGFR is not recommended in the following populations: Individuals with unstable creatinine concentrations, including patients and those with serious co-morbid conditions. Patients with extremes in muscle mass or diet. The data above are obtained from the National Kidney Disease Education Program (NKDEP) which additionally recommends that when the eGFR is used in patients with extremes of body mass index for purposes of drug dosing, the eGFR should be multiplied by the estimated BMI. [facility] CHEM PANEL Calcium Lvl 9.0 mg/dL 8.5 - 10.5 08/13/2014 [facility] CHEM PANEL CO2 25 meq/L 24 - 32 08/13/2014 [facility] CHEM PANEL AGAP 11.8 meq/L 10.0 - 20.0 08/13/2014 [facility] Vital Signs Vital Sign Value Date Comments Source Respitory Rate 20 08/13/2014 [facility] Systolic (mm Hg) 136 08/13/2014 [facility] Diastolic (mm Hg) 69 08/13/2014 [facility] Systolic (mm Hg) 142 08/13/2014 [facility] Diastolic (mm Hg) 66 08/13/2014 [facility] Respitory Rate 22 08/13/2014 [facility] Systolic (mm Hg) 139 08/13/2014 [facility] Diastolic (mm Hg) 68 08/13/2014 [facility] Respitory Rate 19 08/13/2014 [facility] Weight 72.727 08/10/2014 [facility] Height 165.1 cm 08/10/2014 [facility] BMI Calculated 26.68 08/10/2014 [facility] Encounters Location Location Details Encounter Type Encounter Number Reason For Visit Attending Provider ADM Date DC Date Status Source [facility] Outpatient [facility] Diag Services [id number] Rachel Hand 06/05/2014 06/06/2014 [facility] OBS Day Surgery [id number] Rachel Hand 08/13/2014 08/14/2014 [facility] Departed Emergency Room [id number] TISH JOHNSON MD 10/17/2017 10/18/2017 [facility] Departed Emergency Room [id number] JEMAL PASTRANA MD 11/07/2017 11/08/2017 [facility] Departed Emergency Room [id number] JEMAL PASTRANA MD 11/29/2017 11/29/2017 [facility] Departed Emergency Room [id number] JEMAL PASTRANA MD 11/30/2017 11/30/2017 [facility] Registered Emergency Room [id number] LATOYA ROJAS MD 06/24/2018 [facility] Procedures Procedure Code Date Perfomer Comments Source Bypass [id number] [facility] Cholecystectomy [id number] [facility] Procedure [id number] [facility]
--- OUTSIDE RECORDS SUMMARY | 2018-10-17 09:53 | XMS REPORT | Clinical Summary ---
Author Author Bryan [facility] Organization [facility] Address Unknown Phone Unavailable Care Team Providers Care Gas Mask Inspector Name Role Phone Subhash Najera MD PCP Allergies Comments Active Allergy Reactions Severity Noted Date vertigo Aspartame Other (See 05/27/2017 Comments) Ciprofloxacin Hcl Swelling High 05/22/2016 Pt state he breaks out in spots Codeine Other (See High 05/22/2016 Comments) Medications End Date Status Medication Sig Dispensed Refills Start Date Active atorvastatin (LIPITOR) 80 Take 80 mg by 0 MG tablet mouth every morning. Active omeprazole (PriLOSEC) 20 Take 20 mg by 0 MG capsule mouth every morning. Active metFORMIN (GLUCOPHAGE) Take 500 mg 0 500 mg tablet by mouth 2 (two) times a day with meals. Active furosemide (LASIX) 40 mg Take 40 mg by 0 tablet mouth every morning. Active rivaroxaban (XARELTO) 20 Take 20 mg by 0 mg tablet mouth daily. Pt is not to take this mediation until pt see the urologist Active lisinopril Take 40 mg by 0 (PRINIVIL,ZESTRIL) 40 mg mouth every tablet morning. Pt takes a second one if BP greatly increases Active metoprolol tartrate Take 25 mg by 0 (LOPRESSOR) 50 mg tablet mouth every morning. Active PACERONE 100 mg tablet Take 100 mg 0 by mouth 8 daily. Active loratadine (CLARITIN) 10 Take 10 mg by 0 mg tablet mouth daily. Active ferrous sulfate 325 (65 Take 325 mg 0 FE) MG tablet by mouth daily with breakfast. Active clonIDINE (CATAPRES) 0.1 Take 0.1 mg 0 MG tablet by mouth every evening. 05/17/2018 Discontinued amIODarone (PACERONE) 200 Take 200 mg 0 MG tablet by mouth every morning. 04/01/2018 Discontinued VIT B COMPLEX Take by 0 NO.12/NIACIN,B3, (VITAMIN mouth. B COMPLEX NO.12-NIACIN ORAL) 04/01/2018 Discontinued traZODone (DESYREL) 50 MG Take 50 mg by 0 tablet mouth nightly as needed for sleep. 04/01/2018 Discontinued rivaroxaban (XARELTO) 20 Take 20 mg by 0 mg tablet mouth. 10/16/2017 hydrALAZINE (APRESOLINE) Take 1 tablet 30 tablet 0 10 MG tablet (10 mg total) 7 by mouth 2 (two) times a day for 15 days. 09/06/2018 Discontinued hydrALAZINE (APRESOLINE) Take 50 mg by 0 50 MG tablet mouth 4 (four) times a day. Pt takes morning, noon, night and midnight 05/18/2018 Discontinued NIFEdipine XL (PROCARDIA Take 15 mg by 0 XL) 30 MG 24 hr tablet mouth daily as needed. Pt only takes if the HR >100 or SBP >180 06/18/2018 amLODIPine (NORVASC) 5 mg Take 1 tablet 30 tablet 0 tablet (5 mg total) 8 by mouth daily for 30 days. 10/07/2018 ondansetron ODT Take 1 tablet 0 (ZOFRAN-ODT) 4 MG (4 mg total) 8 disintegrating tablet by mouth every 8 (eight) hours as needed for nausea or vomiting for up to 30 days. 10/07/2018 acetaminophen (TYLENOL) Take 2 0 325 MG tablet tablets (650 8 mg total) by mouth every 6 (six) hours as needed for mild pain or fever for up to 30 days. 10/08/2018 insulin lispro (HumaLOG) Inject 0-12 10 mL 12 100 unit/mL injection Units under 8 the skin 3 (three) times a day with meals for 30 days. 10/08/2018 aspirin (ECOTRIN) 81 MG Take 1 tablet 30 tablet 0 enteric coated tablet (81 mg total) 8 by mouth daily for 30 days. Active Problems Problem Noted Date Heart palpitations 09/06/2018 Atrial fibrillation 05/17/2018 Encounters Care Team Description Date Type Specialty N/A 09/07/2018 Intake Matt Patel MD Yerramadha, Muralidhar Reddy, MD Atrial fibrillation with RVR (HCC) (Primary Dx); Heart palpitations; Dehydration; Lightheadedness; Hyperglycemia; Elevated TSH; Persistent atrial fibrillation (HCC) 09/06/2018 [facility] General Internal Medicine - Encounter 09/07/2018 09/06/2018 Travel Gustavo Navas MD Ep cardioversion [94568 (CPT)] 06/23/2018 Surgery Procedural Cardiology Willian Mistry MD 06/23/2018 Anesthesia Procedural Cardiology Event Gusatvo Navas MD Preoperative testing 06/23/2018 Hospital Procedural Cardiology Encounter Gustavo Navas MD 06/22/2018 Hospital Radiology Encounter Gustavo Navas MD Preoperative testing (Primary Dx) 06/22/2018 Pre-Admit Pre-Admission Testing Testing Appointment Maryjo Reed 06/22/2018 Documentation Procedural Cardiology Juan Ramirez MD Atrial fibrillation, unspecified type (Primary Dx); Palpitations 06/10/2018 Emergency Emergency Medicine Sukhjinder Uribe MD 05/18/2018 Anesthesia Procedural Cardiology Event Levon Hdz 05/18/2018 Orders Only Cardiology Bayron Durán MD Teqwimuah, Remy, DO Al-Lahiq, Maha, MD Atrial fibrillation, unspecified type (Primary Dx); Chronic atrial fibrillation 05/17/2018 Emergency General Internal Medicine - 05/18/2018 [place] Bautista MD 04/04/2018 Anesthesia Procedural Cardiology Event Meseret Geller MD Ep cardioversion [[id number] (CPT)] 04/04/2018 Surgery Procedural Cardiology Meseret Geller MD Preoperative testing 04/04/2018 Hospital Procedural Cardiology Encounter Meseret Geller MD Preoperative testing (Primary Dx) 04/01/2018 Pre-Admit Pre-Admission Testing Testing Appointment Jim Kwan MD Hypertensive urgency (Primary Dx) 01/27/2018 Emergency Emergency Medicine after 10/16/2017 Family History Medical History Relation Name Comments Heart disease Mother Relation Name Status Comments Father DEMENTIA Mother Social History Date Tobacco Use Types Packs/Day Years Used Never Smoker 0 Smokeless Tobacco: Never Used Tobacco Cessation: Counseling Given: Yes Alcohol Use Drinks/Week oz/Week Comments No Alcohol Habits Answer Date Recorded How often do you have a drink containing alcohol? Never 09/06/2018 How many drinks containing alcohol do you have on Not asked a typical day when you are drinking? How often do you have six or more drinks on one Not asked occasion? Sex Assigned at Date Recorded Not on file Industry Job Start Date Occupation Not on file Not on file Not on file Travel End Travel History Travel Start No recent travel history available. Last Filed Vital Signs Time Taken Vital Sign Reading 09/07/2018 3:39 PM BLENDING TECHNICIAN Blood Pressure 139/90 09/07/2018 3:39 PM BLENDING TECHNICIAN Pulse 67 09/07/2018 3:39 PM BLENDING TECHNICIAN Temperature 36.8 C (98.3 F) 09/07/2018 3:39 PM BLENDING TECHNICIAN Respiratory Rate 18 09/07/2018 3:39 PM BLENDING TECHNICIAN Oxygen Saturation 95% - Inhaled Oxygen - Concentration 09/06/2018 9:01 AM BLENDING TECHNICIAN Weight 74.8 kg (165 lb) 09/06/2018 9:01 AM BLENDING TECHNICIAN Height 165.1 cm (5' 5") 09/06/2018 9:01 AM BLENDING TECHNICIAN Body Mass Index 27.46 Plan of Treatment Health Maintenance Due Date Last Done Comments SHINGLES VACCINES (1 of 1982 2) PNEUMOCOCCAL 1997 POLYSACCHARIDE VACCINE AGE 65 AND OVER PNEUMOCOCCAL-13 1997 INFLUENZA VACCINE 05/25/2018 Procedures Comments Procedure Name Priority Date/Time Associated Diagnosis POC GLUCOSE Routine 09/07/2018 3:39 PM BLENDING TECHNICIAN POC GLUCOSE Routine 09/07/2018 12:00 PM BLENDING TECHNICIAN ECG 12-LEAD Routine 09/07/2018 11:25 AM BLENDING TECHNICIAN ESTIMATED GFR Routine 09/07/2018 5:54 AM BLENDING TECHNICIAN COMPREHENSIVE METABOLIC Routine 09/07/2018 PANEL 5:54 AM BLENDING TECHNICIAN HC COMPLETE BLD COUNT Routine 09/07/2018 W/AUTO DIFF 5:54 AM BLENDING TECHNICIAN POC GLUCOSE Routine 09/07/2018 5:40 AM BLENDING TECHNICIAN POC GLUCOSE Routine 09/06/2018 4:02 PM BLENDING TECHNICIAN URINALYSIS SCREEN AND STAT 09/06/2018 MICROSCOPY, WITH REFLEX 3:50 PM BLENDING TECHNICIAN TO CULTURE GRAM STAIN STAT 09/06/2018 3:48 PM BLENDING TECHNICIAN URINE CULTURE STAT 09/06/2018 3:48 PM BLENDING TECHNICIAN POC GLUCOSE Routine 09/06/2018 10:59 AM BLENDING TECHNICIAN THYROID STIMULATING Timed 09/06/2018 HORMONE 9:32 AM BLENDING TECHNICIAN PARTIAL THROMBOPLASTIN STAT 09/06/2018 TIME (PTT) 9:32 AM BLENDING TECHNICIAN PROTHROMBIN TIME WITH INR STAT 09/06/2018 9:32 AM BLENDING TECHNICIAN ESTIMATED GFR STAT 09/06/2018 9:32 AM BLENDING TECHNICIAN CREATINE KINASE, TOTAL STAT 09/06/2018 (CPK) 9:32 AM BLENDING TECHNICIAN B NATRIURETIC PEPTIDE STAT 09/06/2018 9:32 AM BLENDING TECHNICIAN TROPONIN STAT 09/06/2018 9:32 AM BLENDING TECHNICIAN MAGNESIUM LEVEL STAT 09/06/2018 9:32 AM BLENDING TECHNICIAN PHOSPHORUS LEVEL STAT 09/06/2018 9:32 AM BLENDING TECHNICIAN COMPREHENSIVE METABOLIC STAT 09/06/2018 PANEL 9:32 AM BLENDING TECHNICIAN HC COMPLETE BLD COUNT STAT 09/06/2018 W/AUTO DIFF 9:32 AM BLENDING TECHNICIAN XR CHEST 1 VW PORTABLE STAT 09/06/2018 9:11 AM BLENDING TECHNICIAN ECG ED PRELIMINARY Routine 09/06/2018 INTERPRETATION 9:05 AM BLENDING TECHNICIAN MA CRITICAL CARE, E/M Routine 09/06/2018 30-74 MINUTES 9:05 AM BLENDING TECHNICIAN ECG 12-LEAD STAT 09/06/2018 8:53 AM BLENDING TECHNICIAN EP CARDIOVERSION W BLACK Routine 06/23/2018 7:35 AM CDT POC GLUCOSE Routine 06/23/2018 6:13 AM CDT HC COMPLETE BLD COUNT STAT 06/23/2018 W/AUTO DIFF 6:00 AM CDT XR CHEST 2 VW Routine 06/22/2018 Preoperative testing 2:50 PM CDT COMPREHENSIVE METABOLIC Routine 06/22/2018 PANEL 2:10 PM CDT ZZESTIMATED GFR Routine 06/22/2018 2:10 PM CDT PARTIAL THROMBOPLASTIN Routine 06/22/2018 Preoperative testing TIME (PTT) 2:10 PM CDT PROTHROMBIN TIME WITH INR Routine 06/22/2018 Preoperative testing 2:10 PM CDT BASIC METABOLIC PANEL Routine 06/22/2018 Preoperative testing 2:10 PM CDT ECG 12-LEAD Routine 06/22/2018 Preoperative testing 2:08 PM CDT ZZESTIMATED GFR STAT 06/10/2018 9:52 AM CDT T4, FREE STAT 06/10/2018 9:52 AM CDT THYROID STIMULATING STAT 06/10/2018 HORMONE 9:52 AM CDT TROPONIN STAT 06/10/2018 9:52 AM CDT COMPREHENSIVE METABOLIC STAT 06/10/2018 PANEL 9:52 AM CDT HC COMPLETE BLD COUNT STAT 06/10/2018 W/AUTO DIFF 9:52 AM CDT ECG ED PRELIMINARY Routine 06/10/2018 INTERPRETATION 9:40 AM CDT ECG 12-LEAD STAT 06/10/2018 9:33 AM CDT ECG 12-LEAD Routine 05/18/2018 10:06 AM CDT ZZESTIMATED GFR Routine 05/18/2018 5:16 AM CDT BASIC METABOLIC PANEL Routine 05/18/2018 5:16 AM CDT PARTIAL THROMBOPLASTIN Routine 05/18/2018 TIME (PTT) 5:16 AM CDT PROTHROMBIN TIME WITH INR Routine 05/18/2018 5:16 AM CDT CBC HEMOGRAM Routine 05/18/2018 5:16 AM CDT LIPID PANEL Routine 05/18/2018 5:16 AM CDT ECHOCARDIOGRAM WITH Routine 05/17/2018 AGITATED SALINE (37190) 2:45 PM CDT ZZESTIMATED GFR STAT 05/17/2018 8:46 AM CDT TROPONIN STAT 05/17/2018 8:46 AM CDT COMPREHENSIVE METABOLIC STAT 05/17/2018 PANEL 8:46 AM CDT HC COMPLETE BLD COUNT STAT 05/17/2018 W/AUTO DIFF 8:46 AM CDT ECG ED PRELIMINARY Routine 05/17/2018 INTERPRETATION 8:32 AM CDT ECG 12-LEAD STAT 05/17/2018 8:32 AM CDT EP CARDIOVERSION Routine 04/04/2018 10:53 AM CDT POC GLUCOSE Routine 04/04/2018 9:10 AM CDT ECG 12-LEAD Routine 04/01/2018 Preoperative testing 8:48 AM CDT PROTHROMBIN TIME WITH INR Routine 04/01/2018 Preoperative testing 8:45 AM CDT ZZESTIMATED GFR Routine 04/01/2018 8:45 AM CDT BASIC METABOLIC PANEL Routine 04/01/2018 Preoperative testing 8:45 AM CDT HC COMPLETE BLD COUNT Routine 04/01/2018 Preoperative testing W/AUTO DIFF 8:45 AM CDT ZZESTIMATED GFR STAT 01/27/2018 2:03 AM CDT TROPONIN STAT 01/27/2018 2:03 AM CDT THYROID STIMULATING STAT 01/27/2018 HORMONE 2:03 AM CDT PHOSPHORUS LEVEL STAT 01/27/2018 2:03 AM CDT MAGNESIUM LEVEL STAT 01/27/2018 2:03 AM CDT COMPREHENSIVE METABOLIC STAT 01/27/2018 PANEL 2:03 AM CDT HC COMPLETE BLD COUNT STAT 01/27/2018 W/AUTO DIFF 2:03 AM CDT XR CHEST 1 VW PORTABLE STAT 01/27/2018 1:53 AM CDT ECG 12-LEAD STAT 01/27/2018 1:30 AM CDT ECG ED PRELIMINARY Routine 01/27/2018 INTERPRETATION 1:23 AM CDT after 10/16/2017 Results * POC glucose (09/07/2018 3:39 PM BLENDING TECHNICIAN) Only the most recent of 7 results within the time period is included. POC glucose 141 (H) 65 - 99 mg/dL [facility] Comment: [facility] Meter ID: [id number] Pigment Weigher: Corey Koch Performing Organization Address City/State/Zipcode [place] [address] [place] [address] PATHOLOGY AND GENOMIC MEDICINE [facility] [address] [place], [place] [id number] [place] [address] * ECG 12 lead (09/07/2018 11:25 AM BLENDING TECHNICIAN) Only the most recent of 8 results within the time period is included. Ventricular rate 70 [facility] Atrial rate 80 [facility] QRSD interval 76 [facility] QT interval 428 [facility] QTC interval 462 [facility] QRS axis 1 57 [facility] T wave axis -51 [facility] EKG impression Atrial fibrillation-Cannot [facility] rule out Anterior infarct (cited on or before 06-SEP-2018)-T wave abnormality, consider inferior ischemia or digitalis effect-Abnormal ECG-In automated comparison with ECG of 06-SEP-2018 08:53,-T wave inversion more evident in Inferior leads- Narrative Performed At Performing Organization Address City/[facility]/Zipcode Phone Number [facility] [place] [address] [place] [address] * Estimated GFR (09/07/2018 5:54 AM BLENDING TECHNICIAN) Only the most recent of 2 results within the time period is included. Estimated GFR 77 mL/min/1.73 m2 [facility] Comment: [facility] CatergoryUnitsInte rpretation G1 >=90 Normal or high G2 60-89Mildly decreased [id number] Mildly to moderately decreased [id number] Moderately to severely decreased G4 15-29Severely decreased G5 <15Kidney failure The eGFR was calculated using the Chronic Kidney Disease Epidemiology Collaboration (CKD-EPI) equation. Interpretation is based on recommendations of the National Kidney Foundation-Kidney Disease Outcomes Quality Initiative (NKF-KDOQI) published in 2014. Specimen Plasma specimen Performing Organization Address City/[facility]/Zipcode Phone [place] [address] [place] [address] PATHOLOGY AND GENOMIC MEDICINE [facility] [address] [place] [address] [facility] * CBC with platelet and differential (09/07/2018 5:54 AM BLENDING TECHNICIAN) Only the most recent of 7 results within the time period is included. WBC 5.69 4.50 - 11.00 k/uL [facility] RBC 4.27 (L) 4.40 - 6.00 m/uL [facility] HGB 13.5 (L) 14.0 - 18.0 g/dL [facility] HCT 39.0 (L) 41.0 - 51.0 % [facility] MCV 91.3 82.0 - 100.0 fL [facility] MCH 31.6 27.0 - 34.0 pg [facility] MCHC 34.6 31.0 - 37.0 g/dL [facility] RDW - SD 46.5 37.0 - 55.0 fL [facility] MPV 10.7 8.8 - 13.2 fL [facility] Platelet count 166 150 - 400 k/uL [facility] Nucleated RBC 0.00 /100 WBC [facility] Neutrophils 62.3 39.0 - 69.0 % [facility] Lymphocytes 25.5 25.0 - 45.0 % [facility] Monocytes 8.3 0.0 - 10.0 % [facility] Eosinophils 2.3 0.0 - 5.0 % [facility] Basophils 0.9 0.0 - 1.0 % [facility] Specimen Blood Performing Organization Address City/State/Zipcode Phone Number [facility] [place] [id number] [place] [address] [place] [address] PATHOLOGY AND GENOMIC MEDICINE [facility] [id number] [place] [address] * Comprehensive metabolic panel (09/07/2018 5:54 AM BLENDING TECHNICIAN) Only the most recent of 6 results within the time period is included. Sodium 141 135 - 148 mEq/L [facility] Potassium 3.6 3.5 - 5.0 mEq/L [facility] Chloride 102 98 - 112 mEq/L [facility] CO2 29 24 - 31 mEq/L [facility] Anion gap 10@ANIO 7 - 15 mEq/L [facility] BUN 14 8 - 23 mg/dL [facility] Creatinine 0.90 0.70 - 1.20 mg/dL [facility] Glucose 199 (H) 65 - 99 mg/dL [facility] Calcium 8.6 (L) 8.8 - 10.2 mg/dL [facility] Protein 6.3 6.3 - 8.3 g/dL [facility] Comment: [facility] [place] 4.6-7.0 g/dL 1 week 4.4-7.6 g/dL 7 months-1year 5.1-7.3 g/dL 1-2 years5.6-7 .5 g/dL >3 years6.0-8 .0 g/dL 18-150 6.3-8.3 g/dL Albumin 3.5 3.5 - 5.0 g/dL [facility] A/G ratio 1.2 0.7 - 3.8 [facility] Alkaline phosphatase 62 40 - 129 U/L [facility] AST 16 10 - 50 U/L [facility] ALT 18 5 - 50 U/L [facility] Total bilirubin 0.5 0.0 - 1.2 mg/dL [facility] Specimen Plasma specimen Performing Organization Address City/State/Zipcode Phone Number [facility] DEPARTMENT OF [address] [place] [address] [place] [address] PATHOLOGY AND GENOMIC MEDICINE [address] [place] [phone] [facility] * Urinalysis screen and microscopy, with reflex to culture (09/06/2018 3:50 PM BLENDING TECHNICIAN) Specimen site Clean catch [facility] Color, UA Yellow [facility] Appearance, UA Clear [facility] Specific gravity, UA 1.021 1.001 - 1.035 [facility] pH, UA 6.0 5.0 - 8.5 [facility] Protein, UA Negative Negative [facility] Glucose, UA 3+ (A) Negative [facility] Ketones, UA Negative Negative [facility] Bilirubin, UA Negative Negative [facility] Blood, UA Moderate (A) Negative [facility] Nitrite, UA Negative Negative [facility] Urobilinogen, UA 4.0 (A) <2.0 [facility] Leukocyte esterase, UA Negative Negative [facility] WBC, UA 6-10 (H) 0 - 1 /HPF [facility] RBC, UA 21-40 (H) 0 - 5 /HPF [facility] Bacteria, UA None seen None seen [facility] Yeast, UA None seen [facility] Yeast with pseudohyphae, None seen IRVIN GARCIA UA [facility] Specimen Urine Performing Organization Address [facility] Centercode Phone Number [facility] DEPARTMENT [address] [place] [address] PATHOLOGY AND GENOMIC MEDICINE [address] * Gram stain (09/06/2018 3:48 PM BLENDING TECHNICIAN) Gram stain result No WBC's or organisms seen. IRVIN GARCIA Comment: HOSPITAL Specimen Information Specimen Source: Urine Specimen Site: Clean catch Specimen Urine Performing Organization Address [facility] Centercode Phone Number [facility] [place] [address] PATHOLOGY AND [facility] MEDICINE [address] * Urine culture (09/06/2018 3:48 PM BLENDING TECHNICIAN) Urine culture isolate IRVIN GARCIA ~No growth HOSPITAL after 10 hours No growth after 24 hours Comment: Specimen Information Specimen Source: Urine Specimen Site: Clean catch Specimen Urine Performing Organization Address [facility] Phone Number [facility] [place] [address] PATHOLOGY AND [facility] MEDICINE [address] * Troponin (09/06/2018 9:32 AM BLENDING TECHNICIAN) Only the most recent of 4 results within the time period is included. Troponin <0.300 0.000 - 0.300 ng/mL IRVIN GARCIA Comment: [facility] 0.30 - 1.49 ng/mlMay indicate increased risk of acute coronary syndrome. >=1.5 ng/ml Consistent with acute myocardial infarction. The diagnostic value of a single normal or non-diagnostic result is questionable.Serial samples at 2-6 hour intervals are required to rule out acute myocardial injury. Specimen Plasma specimen Performing Organization Address [facility] Centercode Phone Number [facility] DEPARTMENT [address] [place] [id number] PATHOLOGY AND GENOMIC MEDICINE [address] * Partial thromboplastin time, activated (09/06/2018 9:32 AM BLENDING TECHNICIAN) Only the most recent of 3 results within the time period is included. PTT 29.8 23.0 - 36.0 sec [facility] Comment: [facility] PTT therapeutic range for unfractionated heparin is 61.0-112.0 seconds which corresponds to Anti-Xa 0.3-0.7 U/ml. Specimen Blood Performing Organization Address [facility] Phone Number [address] [place] [address] PATHOLOGY AND [facility] MEDICINE [address] * Prothrombin time with INR (09/06/2018 9:32 AM BLENDING TECHNICIAN) Only the most recent of 4 results within the time period is included. Prothrombin time 15.0 (H) 11.5 - 14.5 sec [facility] INR 1.2 [facility] Comment: [facility] The International Normalized Ratio (INR) is a therapeutic monitoring tool for patients who are stable on oral anticoagulant therapy. An INR of 2.0-3.0 is suggested for deep vein thrombosis/pulmonary embolism. Specimen Blood Performing Organization Address [facility] Phone Number [address] [place] [address] PATHOLOGY AND GENOMIC MEDICINE [address] * Thyroid stimulating hormone (09/06/2018 9:32 AM BLENDING TECHNICIAN) Only the most recent of 3 results within the time period is included. TSH 7.44 (H) 0.27 - 4.20 uIU/mL [facility] Specimen Plasma specimen Performing Organization Address [facility] Phone Number [address] [place] [address] PATHOLOGY AND [facility] MEDICINE [address] * Phosphorus level (09/06/2018 9:32 AM BLENDING TECHNICIAN) Only the most recent of 2 results within the time period is included. Phosphorus 3.3 2.4 - 4.5 mg/dL [facility] Specimen Plasma specimen Performing Organization Address [facility] Phone Number [address] [place] [address] PATHOLOGY AND GENOMIC MEDICINE [address] * B natriuretic peptide (09/06/2018 9:32 AM BLENDING TECHNICIAN) BNP 365 (H) 0 - 100 pg/mL [facility] Specimen Blood Performing Organization Address [facility] Phone Number [address] [place] [address] PATHOLOGY AND GENOMIC MEDICINE [address] * Magnesium level (09/06/2018 9:32 AM BLENDING TECHNICIAN) Only the most recent of 2 results within the time period is included. Magnesium 1.8 1.6 - 2.4 mg/dL [facility] Specimen Plasma specimen Performing Organization Address [facility] Phone Number [address] [place] [address] PATHOLOGY AND GENOMIC MEDICINE [address] * Creatine kinase, total (CPK) (09/06/2018 9:32 AM BLENDING TECHNICIAN) Creatine kinase 76 39 - 308 U/L [facility] Specimen Plasma specimen Performing Organization Address [facility] Phone Number [address] [place] [address] PATHOLOGY AND GENOMIC MEDICINE [address] * XR Chest 1 Vw Portable (09/06/2018 9:11 AM BLENDING TECHNICIAN) Only the most recent of 2 results within the time period is included. Narrative Performed At EXAMINATION:XR CHEST 1 VW PORTABLE RADIANT CLINICAL HISTORY:tachycardia COMPARISON:None. IMPRESSION: 1.Lungs are clear. 2.Normal heart size. Atherosclerotic thoracic aorta. 3.Broken superior and inferior sternotomy wires, unchanged. [id number] Procedure Note Hm Interface, Radiology Results Incoming - 09/06/2018 9:16 AM BLENDING TECHNICIAN EXAMINATION: XR CHEST 1 VW PORTABLE CLINICAL HISTORY: tachycardia COMPARISON: None. IMPRESSION: 1. Lungs are clear. 2. Normal heart size. Atherosclerotic thoracic aorta. 3. Broken superior and inferior sternotomy wires, unchanged. [id number] Performing Organization Address [facility] Phone Number [facility] [address] [place] [address] * ECG ED Preliminary Interpretation - Not an Order (09/06/2018 9:05 AM BLENDING TECHNICIAN) Only the most recent of 4 results within the time period is included. Narrative Performed At Matt Jhons MD 09/06/20189:16 PM ECG ED Preliminary Interpretation - Not an Order Performed by: Matt Johns MD Authorized by: Matt Johns MD ECG reviewed by ED Physician in the absence of a reject opener and filler: yes Interpretation: Interpretation: abnormal Rate: ECG rate:98 ECG rate assessment: normal Rhythm: Rhythm: atrial fibrillation Ectopy: Ectopy: none QRS: QRS axis:Normal QRS intervals:Normal Conduction: Conduction: normal ST segments: ST segments:Non-specific T waves: T waves: inverted Inverted:III and aVF * CRITICAL CARE (09/06/2018 9:05 AM BLENDING TECHNICIAN) Narrative Performed At Matt Johns MD 09/06/20189:16 PM Critical Care Performed by: Matt oJhns MD Authorized by: Matt Johns MD Critical care provider statement: Critical care time (minutes):35 Critical care time was exclusive of:Separately billable procedures and treating other patients Critical care was necessary to treat or prevent imminent or life-threatening deterioration of the following conditions: A-Fib with RVR Critical care was time spent personally by me on the following activities:Development of treatment plan with patient or surrogate, examination of patient, evaluation of patient's response to treatment, ordering and performing treatments and interventions, ordering and review of laboratory studies, pulse oximetry, re-evaluation of patient's condition, review of old charts, ordering and review of radiographic studies, discussions with primary provider and obtaining history from patient or surrogate * Cv electrophysiology procedure (06/23/2018 7:35 AM CDT) Narrative Performed At Performing Organization Address City/[facility] Phone Number [facility] [address] [place] [address] * XR Chest 2 Vw (06/22/2018 2:50 PM CDT) Narrative Performed At TWO VIEW CHEST, 06/22/2018 [facility] Clinical history:Preoperative evaluation Technique: PA and lateral views chest. Comparison: January 27, 2018 DISCUSSION: The lungs are clear and symmetrically inflated. No pleural effusions. Mild left ventricular prominence with normal heart size. Postoperative sequela of sternotomy. Aortic arch and descending thoracic aortic calcification. Pulmonary vasculature is normal. The skeleton is grossly intact. IMPRESSION: No acute abnormality or interval change from January 2018. Procedure Note Interface, Radiology Results Incoming - 06/22/2018 3:03 PM CDT TWO VIEW CHEST, 06/22/2018 Clinical history: Preoperative evaluation Technique: PA and lateral views chest. Comparison: January 27, 2018 DISCUSSION: The lungs are clear and symmetrically inflated. No pleural effusions. Mild left ventricular prominence with normal heart size. Postoperative sequela of sternotomy. Aortic arch and descending thoracic aortic calcification. Pulmonary vasculature is normal. The skeleton is grossly intact. IMPRESSION: No acute abnormality or interval change from January 2018. Performing Organization Address City/State/Zipcode Phone Number [facility] [address] [place] [address] * Estimated GFR (06/22/2018 2:10 PM CDT) Only the most recent of 6 results within the time period is included. GFR Non Af Amer 64 mL/min/1.73 m2 [facility] DEPARTMENT OF PATHOLOGY AND GENOMIC MEDICINE GFR Af Amer 77 mL/min/1.73 m2 [facility] DEPARTMENT OF Comment: PATHOLOGY AND Chronic kidney disease: <60 GENOMIC MEDICINE mL/min/1.73m2 Kidney failure: <15 mL/min/1.73m2 The estimated GFR is calculated from the IDMS-traceable Modification of Diet in Renal Disease Equation. The accuracy of the calculation is poor when the creatinine is normal. Calculated values >90 mL/min/1.73m2 are not reported. This equation has not been validated in children (<18 years), women, the elderly (>70 years), or ethnic groups other than Caucasians and Americans. Specimen Plasma specimen Performing Organization Address City/State/Zipcode Phone Number [facility] DEPARTMENT OF [address] [place] [address] [place] [address] PATHOLOGY AND GENOMIC MEDICINE * Basic metabolic panel (06/22/2018 2:10 PM CDT) Only the most recent of 3 results within the time period is included. Sodium 141 135 - 148 mEq/L [facility] DEPARTMENT OF PATHOLOGY AND GENOMIC MEDICINE Potassium 4.1 3.5 - 5.0 mEq/L [facility] DEPARTMENT OF PATHOLOGY AND GENOMIC MEDICINE Chloride 102 98 - 112 mEq/L [facility] DEPARTMENT OF PATHOLOGY AND GENOMIC MEDICINE CO2 29 24 - 31 mEq/L [facility] DEPARTMENT OF PATHOLOGY AND GENOMIC MEDICINE Anion gap 10@ANIO 7 - 15 mEq/L [facility] DEPARTMENT OF PATHOLOGY AND GENOMIC MEDICINE BUN 19 8 - 23 mg/dL [facility] DEPARTMENT OF PATHOLOGY AND GENOMIC MEDICINE Creatinine 1.1 0.7 - 1.2 mg/dL [facility] DEPARTMENT OF PATHOLOGY AND GENOMIC MEDICINE Glucose 263 (H) 65 - 99 mg/dL [facility] DEPARTMENT OF PATHOLOGY AND GENOMIC MEDICINE Calcium 9.2 8.8 - 10.2 mg/dL [facility] DEPARTMENT OF PATHOLOGY AND GENOMIC MEDICINE Specimen Plasma specimen Performing Organization Address City/[facility] Phone Number [address] [place] [address] PATHOLOGY [facility] * T4, free (06/10/2018 9:52 AM CDT) T4, free 0.96 0.90 - 1.70 ng/dL [facility] DEPARTMENT OF PATHOLOGY AND GENOMIC MEDICINE Specimen Plasma specimen Performing Organization Address City/[facility] Phone Number [address] [place] [address] PATHOLOGY [facility] * CBC hemogram (05/18/2018 5:16 AM CDT) WBC 5.84 4.50 - 11.00 k/uL [facility] DEPARTMENT OF PATHOLOGY AND GENOMIC MEDICINE RBC 4.27 (L) 4.40 - 6.00 m/uL [facility] DEPARTMENT OF PATHOLOGY AND GENOMIC MEDICINE HGB 12.9 (L) 14.0 - 18.0 g/dL [facility] DEPARTMENT OF PATHOLOGY AND GENOMIC MEDICINE HCT 38.4 (L) 41.0 - 51.0 % [facility] DEPARTMENT OF PATHOLOGY AND GENOMIC MEDICINE MCV 89.9 82.0 - 100.0 fL [facility] DEPARTMENT OF PATHOLOGY AND GENOMIC MEDICINE MCH 30.2 27.0 - 34.0 pg [facility] DEPARTMENT OF PATHOLOGY AND GENOMIC MEDICINE MCHC 33.6 31.0 - 37.0 g/dL [facility] DEPARTMENT OF PATHOLOGY AND GENOMIC MEDICINE RDW - SD 46.7 37.0 - 55.0 fL [facility] DEPARTMENT OF PATHOLOGY AND GENOMIC MEDICINE MPV 11.3 8.8 - 13.2 fL [facility] DEPARTMENT OF PATHOLOGY AND GENOMIC MEDICINE Platelet count 154 150 - 400 k/uL [facility] DEPARTMENT OF PATHOLOGY AND GENOMIC MEDICINE Nucleated RBC 0.00 /100 WBC [facility] DEPARTMENT OF PATHOLOGY AND GENOMIC MEDICINE Specimen Blood Performing Organization Address [facility]/Zipcode Phone Number [facility] [address] [place] [address] PATHOLOGY AND GENOMIC MEDICINE * Lipid panel (05/18/2018 5:16 AM CDT) Cholesterol 129 <200 mg/dL [facility] DEPARTMENT OF PATHOLOGY AND GENOMIC MEDICINE Triglycerides 171 (H) <150 mg/dL [facility] DEPARTMENT OF PATHOLOGY AND GENOMIC MEDICINE HDL cholesterol 24 (L) >40 mg/dL [facility] DEPARTMENT OF PATHOLOGY AND GENOMIC MEDICINE LDL cholesterol 80Comment: Result obtained by <100 mg/dL [facility] DEPARTMENT OF direct LDL measurement PATHOLOGY AND GENOMIC MEDICINE Lipid panel SeeBelow [facility] DEPARTMENT OF interpretation Comment: PATHOLOGY AND Total Cholesterol GENOMIC MEDICINE (mg/dL) <200 Desirable 200-239Borderline -high >=240High Triglycerides (mg/dL) <150 Normal 150-199Borderline -high 200-499High >=500Very high HDL Cholesterol (mg/dL) <40Low (male) <40Low (female) LDL Cholesterol (mg/dL) <100 Optimal 100-129Near or above optimal 130-159Borderline -high 160-189High >=190Very high Risk Catergories that modify LDL goals. Risk Catergories LDL goal (mg/dL) CHD and CHD risk equivalent<100 (10-year risk >20%) Multiple (2+) risk factors <130 (10-year risk=<20%) 0-1 risk factors <160 (<10-year risk) Defining levels of lipids in metabolic syndrome Triglycerides >=150 mg/dL HDL Cholesterol Men <40 mg/dL Women <40 mg/dL Non-HDL cholesterol is a second target for therapy in persons with high triglycerides (>=200 mg/dL) Specimen Plasma specimen Performing Organization Address City/[facility]/Zipcode Phone Number [facility] [address] [place] [address] PATHOLOGY AND GENOMIC MEDICINE * Echocardiogram complete w contrast and 3D if needed (05/17/2018 2:45 PM CDT) Velocity Ratio (V1/V2) 0.86 m/s [facility] IVS,d 1.14 cm [facility] EF 55.47 % [facility] LA volume 79.0 cm3 [facility] LVPWD,d 1.15 cm [facility] AoV Mean PG 2.25 mmHg [facility] AV LVOT peak gradient 2.87 mmHg [facility] MV valve area p 1/2 3.52 cm2 [facility] method LVOT Diam,S 1.96 cm [facility] LVOT area 3.02 cm2 [facility] LVOT Vmax 0.85 m/s [facility] LVOT VTI 0.17 m [facility] AoV Peak PG 3.95 mmHg [facility] MV stenosis pressure 1/2 62.55 ms [facility] time LV Vol,s A2C 31.56 mL [facility] LV Systolic Volume Index 17.15 mL/m2 [facility] LV Vol,d A2C 70.70 mL [facility] LV Diastolic Volume Index 38.42 mL/m2 [facility] LA Volume Index 42.93 mL/m2 [facility] BSA 1.84 m2 [facility] AoV Area, Vmax 2.57 cm2 [facility] AoV Area, VTI 2.88 cm2 [facility] AoV Vmax 0.99 m/s [facility] BSA Vee 1.90 m2 [facility] BSA [place] 1.89 m2 [facility] IVS/LVPW,2D 0.99 [facility] LA Area d A4C 77 cm2 [facility] LV,d 3.10 cm [facility] LV,s 2.24 cm [facility] LV Vol,d A4C 82.73 ml [facility] LV Vol,s A4C 38.73 ml [facility] TR Vpeak 2.57 mm/s [facility] BMI 27.96 kg/m2 [facility] RA pressure 5.00 mmHg [facility] TR pk grad 25.13 mmHg [facility] AoV area i VTI BSA [place] 1.57 cm2/m2 [facility] RVSP 31.46 mmHg [facility] AR Press Half Time 927.92 ms [facility] LV SYS VOL 16.90 ml [facility] LV [place] VOL 37.95 ml [facility] LA diam s 5.10 cm [facility] LA Vol MOD A4C 77.26 ml [facility] LV SI Teich 2D 11.46 ml/m2 [facility] LV SV Teich 2D 21.05 ml [facility] LV Vol s Teich PSAX 16.90 ml [facility] LVOT SI 28.61 ml/m2 [facility] AoV Cusp sep 1.25 [facility] Aortic Root 3.28 cm [facility] AoV Vmn 0.72 [facility] AR slope 1.10 [facility] Ar Vmax 3.52 [facility] IVS s 2D 1.48 [facility] LA Ao Ratio Mmode 1.56 [facility] LV FS Cube 2D 27.87 [facility] LV FS Teich 2D 27.87 [facility] MA End [place] Grad 7.23 [facility] MA End Diat Dylon 1.34 [facility] AR maxPG 49.65 [facility] D E excurs 1.20 [facility] E f slope 0.05 [facility] E prime lat 0.11 [facility] PV acc T slope 6.00 [facility] PV AT 86.51 msec [facility] AoV VTI 0.18 m [facility] LV EF,2D 62.47 % [facility] LV EF,A2C 55.35 % [facility] LV EF,A4C 53.19 % [facility] LV EF,BP 52.80 % [facility] [place],d A2C 6.97 cm [facility] [place],d A4C 7.45 cm [facility] [place],s A2C 5.68 cm [facility] [place],s A4C 6.48 cm [facility] LV SV,A2C 39.13 % [facility] LV SV,A4C 44.00 % [facility] LV SV,BP 41.58 % [facility] LV Vol,d BP 78.75 ml [facility] LV Vol,s BP 37.17 nl [facility] LV SI MOD BP BSA [place] 22.64 ml/m2 [facility] LV Vol Index s bpmod BSA 42.87 ml/m2 [facility] [place] PV Vmn 20.24 m/s [facility] LVOT Vmn 0.61 [facility] Pt Size 165.10 [facility] Pt Wt 76.20 [facility] Aov area Vmn 2.57 cm2 [facility] LVOT mean grad 1.62 mmHg [facility] AoV area I VMN bsa 1.40 cm2/m2 [facility] AR DT 3,199.72 msec [facility] AR pk grad 49.65 mmHg [facility] IVS pct thck PLAX 29.85 % [facility] LV SI Cube 2D 10.14 ml/m2 [facility] LV SV Cube 2D 18.63 ml [facility] LV vol d cube 2D 29.82 ml [facility] LV vol s cube 2D 11.19 ml [facility] LVPW pct thck PLAX 27.22 % [facility] LVPW s PLAX 1.47 cm [facility] Narrative Performed At [facility] Bubble study negative. The left ventricle chamber size is normal. Left Ventricular ejection fraction is 50 - 55%. There is mild left ventricular concentric hypertrophy. Right ventricular size is upper limits of normal. Right atrium size upper limits of normal. No pericardial effusion The mitral valve appears thickened. There is mild sclerosis of the MV leaflets. Severe mitral annular calcification. Trace aortic regurgitation. There is mild sclerosis of the aortic valve leaflets. Unable to assess diastolic filling. Performing Organization Address City/[facility] Phone Number [facility] [address] [place] [address] * Cv electrophysiology procedure (04/04/2018 10:53 AM CDT) Narrative Performed At Performing Organization Address [facility] Phone Number [facility] [address] [place] [address] after 10/16/2017 Insurance Payer Benefit Subscriber ID Type Phone Address Plan / Group MEDICARE MEDICARE xxxxxxxxxx Medicare [place], [place] PART A AND B BCBS BCBS xxxxxxxxx PPO CHOICE PPO/FEDJOHN L EMPL PPO Advance Directives Patient has advance care planning documents, and code status on file. For more i nformation, please contact: Irvin Garcia [address] [place] [address] Date Inactivated Comments Code Status Date Activated 05/18/2018 8:32 PM Full Code 05/17/2018 2:43 PM Code Status decision reached by: Patient
[2018-10-17 17:00] VITALS: BP 140/66
--- NOTE | 2018-12-19 08:33 | Operative Report ---
DATE OF PROCEDURE: 10/17/2018 SURGEON: Myron Boss MD PREOPERATIVE DIAGNOSES: 1. Left nephrolithiasis. 2. Left ureterolithiasis. 3. Hematuria. POSTOPERATIVE DIAGNOSES: 1. Left nephrolithiasis. 2. Left ureterolithiasis. 3. Hematuria. 4. Urethral stricture. OPERATION PERFORMED: 1. Cystourethroscopy with calibration and dilation of urethral stricture ( stricture). 2. Cystourethroscopy with bilateral ureteral catheterization and retrograde ureteropyelography ( hematuria). 3. Interpretation of retrograde ureteropyelography. 4. Supervision of fluoroscopy, no radiologist present. 5. Left ureteroscopy with manipulation of ureteral stones ( left ureteral stones). 6. Left ureteroscopy with holmium laser lithotripsy and insertion of stent (had been performed for the left nephrolithiasis). 7. Radiological services for supervision and interpretation of ureteroscopy. SURGEON: Myron oBss MD. ANESTHESIA: General. COMPLICATIONS: None. CLINICAL SUMMARY: Axel Villanueva is an 87-year-old man with nephrolithiasis. He was brought to the operating room for staged procedure. This was part of multi-staged and multi-step process and management of the patient's ureterolithiasis. He is aware of the risks of bleeding, infection, injury to adjacent structures, and need for additional procedures and elected to proceed. PROCEDURE IN DETAIL: Informed consent was verified. Axel Villanueva was properly identified, taken to the operating room, and placed on the cystoscopy table in supine position. Anesthesia was uneventfully begun. The patient was then carefully and gently repositioned in dorsal lithotomy position with all pressure points well padded. His genitalia was prepared and draped in the usual sterile fashion. A 22.5-Angolan cystoscope sheath with the visual obturator in place, it was atraumatically inserted into the patient's urethra and was guided unremarkably through distal urethra to the bulbar region where there was a stricture. We dilated across the stricture and thus calibrating it and dilating it to 22.5-Angolan in size. We passed through normal sphincteric region and the prostate bed was significant for BPH and entered the patient's bladder. Panendoscopy of the urinary bladder revealed no suspicious gross lesions, no tumors, no stones, no diverticula; normally positioned and configured ureteral orifices were identified. An 8-Angolan catheter was used to cannulate each ureter and retrograde ureteropyelograms were performed. Guidewire was then placed in the left ureter and guided to the level of the patient's kidney. Semi-rigid ureteroscope was then brought up along side of the guidewire into the distal ureter. We identified the stone. Stone was then grasped and manipulated and extracted. Secondary guidewires were then placed. Flexible ureteroscope was then brought up over the guidewire and guided to the level of the patient's kidney. The distal ureter did not exhibit any stones, so secondary guidewire was left in place. Flexible ureteroscope was then brought up over the secondary guidewire and guided to the level of the patient's proximal ureter and we identified a stone. The stone was large and it was obstructing. We dislodged the stone and we manipulated back into the patient's kidney. We then proceeded with performing holmium laser lithotripsy on both stones within the kidney. We pulverized both stones, the one that was already in the ureter and the one that was in the kidney down to small fragments. We grasped one fragment and extracted and sent it to the lab for chemical analysis. With cystoscopic and fluoroscopic guidance, a left-sided indwelling ureteral stent was then placed at the patient's kidney as well as the patient's bladder and the retaining sutures were cut short. Interpretation Of Retrograde Ureteropyelography: Contrast was instilled in a retrograde fashion bilaterally. The right side was unremarkable. There were no tumors, no stones, and no diverticula. Unobstructed drainage was observed fluoroscopically. The left-sided exhibited a relatively unremarkably ureter until we reached the stone and proximal ureter and proximal to that there was hydronephrosis. The stent was in good position and coiled the patient's kidney as well as the patient's bladder at the end of the case. The patient's bladder was drained. The cystoscope was withdrawn. A belladonna and opium suppository were placed revealing a 40 gram prostate that is smooth, nonfunctional without any nodules. The patient was then uneventfully reversed from anesthesia and taken to the recovery room in stable condition. There were no complications with procedure. The patient tolerated the procedure well. Plans will be to return the patient to the operating room in several weeks to remove the stent, perform left ureteroscopy and indicated procedures. MD CHUY Renee/JESSICA /[id number]
== END | disposition home or self-care (01) ==
LOC: OR 09:45
PROVIDERS: ATTEND Urology
DX: N20.0 Calculus of kidney (principal); N20.1 Calculus of ureter; N35.912 Unspecified bulbous urethral stricture, male; N13.30 Unspecified hydronephrosis; N28.1 Cyst of kidney, acquired; N40.1 Benign prostatic hyperplasia with lower urinary tract symptoms; R35.1 Nocturia; R81 Glycosuria; E11.9 Type 2 diabetes mellitus without complications; I25.810 Atherosclerosis of coronary artery bypass graft(s) without angina pectoris; I10 Essential (primary) hypertension; D64.9 Anemia, unspecified; R42 Dizziness and giddiness; Z88.6 Allergy status to analgesic agent; Z88.1 Allergy status to other antibiotic agents; Z91.048 Other nonmedicinal substance allergy status; Z01.810 Encounter for preprocedural cardiovascular examination; Z01.812 Encounter for preprocedural laboratory examination; Z01.818 Encounter for other preprocedural examination; Z79.02 Long term (current) use of antithrombotics/antiplatelets; Z79.84 Long term (current) use of oral hypoglycemic drugs; Z95.1 Presence of aortocoronary bypass graft; Z95.0 Presence of cardiac pacemaker
CPT/HCPCS: 36415 ×2; 52356; 71046; 74420; 80048; 82948; 85025; 88300; 93005; C2617; J0360; J0696; J1100; J2001; J2405; J2704; Q9967

== ENCOUNTER → 2018-11-18 | Day surgery (SDC) | payer MEDICARE, BC ==
[~2018-11-18] MED LIST changes: +GENTAMICIN 80MG/NS 100 ML 100 ML IV ONE; -HYDRALAZINE HCL 20 MG/ML VIAL ONE; +HYDROMORPHONE 2MG/ML 2 MG/ML ML ONE; +METOCLOPRAMIDE HCL 10 MG/2ML VIAL ONE; -METOPROLOL TARTRATE INJ 1 MG/ML VIAL ONE; +MORPHINE SULFATE INJ 4 MG/ML INJ 1ML ONE; -TRAMADOL HCL 50 MG TAB ONE
--- OUTSIDE RECORDS SUMMARY | 2018-11-18 11:44 | XMS REPORT | Clinical Summary ---
Author Author [facility] Address Unknown Phone Unavailable Care Team Providers Care Continuous Miner Operator Helper Name Role Phone Subhash Najera MD PCP [...] 20 mg by 0 mg tablet mouth. 09/06/2018 Discontinued hydrALAZINE (APRESOLINE) Take 50 mg [...] Description Date Type Specialty N/A 09/07/2018 Intake Access Matt Johns MD Yerramadha, Muralidhar Reddy, MD Atrial fibrillation with RVR (HCC) (Primary Dx); Heart palpitations; Dehydration; Lightheadedness; Hyperglycemia; Elevated TSH; Persistent atrial fibrillation (HCC) 09/06/2018 Hospital General Internal Medicine - Encounter 09/07/2018 09/06/2018 Travel Gustavo Navas MD Ep cardioversion [60124 (CPT)] 06/23/2018 Surgery Procedural Cardiology Willian Mistry MD 06/23/2018 Anesthesia Procedural Cardiology Event Gustavo Navas MD Preoperative testing 06/23/2018 Hospital Procedural [...] Cardiology Event Meseret Geller MD Ep cardioversion [74982 (CPT)] 04/04/2018 Surgery Procedural Cardiology Meseret Geller MD Preoperative testing 04/04/2018 Hospital Procedural Cardiology Encounter Meseret Geller MD Preoperative testing (Primary Dx) 04/01/2018 Pre-Admit Pre-Admission Testing Testing Appointment Jim Kwan MD Hypertensive urgency (Primary Dx) 01/27/2018 Emergency Emergency Medicine after 11/17/2017 Family History Medical History Relation Name Comments [...] Taken Vital Sign Reading 09/07/2018 3:39 PM QUOTATION CLERK Blood Pressure 139/90 09/07/2018 3:39 PM QUOTATION CLERK Pulse 67 09/07/2018 3:39 PM QUOTATION CLERK Temperature 36.8 C (98.3 F) 09/07/2018 3:39 PM QUOTATION CLERK Respiratory Rate 18 09/07/2018 3:39 PM QUOTATION CLERK Oxygen Saturation 95% - Inhaled Oxygen - Concentration 09/06/2018 9:01 AM QUOTATION CLERK Weight 74.8 kg (165 lb) 09/06/2018 9:01 AM QUOTATION CLERK Height 165.1 cm (5' 5") 09/06/2018 9:01 AM QUOTATION CLERK Body Mass Index 27.46 Plan of Treatment Health Maintenance Due Date Last Done Comments SHINGLES VACCINES (1 of 1982 2) PNEUMOCOCCAL 1997 POLYSACCHARIDE VACCINE AGE 65 AND OVER PNEUMOCOCCAL-13 1997 INFLUENZA VACCINE 05/25/2018 Procedures Comments Procedure Name Priority Date/Time Associated Diagnosis POC GLUCOSE Routine 09/07/2018 3:39 PM QUOTATION CLERK POC GLUCOSE Routine 09/07/2018 12:00 PM QUOTATION CLERK ECG 12-LEAD Routine 09/07/2018 11:25 AM QUOTATION CLERK ESTIMATED GFR Routine 09/07/2018 5:54 AM QUOTATION CLERK COMPREHENSIVE METABOLIC Routine 09/07/2018 PANEL 5:54 AM QUOTATION CLERK HC COMPLETE BLD COUNT Routine 09/07/2018 W/AUTO DIFF 5:54 AM QUOTATION CLERK POC GLUCOSE Routine 09/07/2018 5:40 AM QUOTATION CLERK POC GLUCOSE Routine 09/06/2018 4:02 PM QUOTATION CLERK URINALYSIS SCREEN AND STAT 09/06/2018 MICROSCOPY, WITH REFLEX 3:50 PM QUOTATION CLERK TO CULTURE GRAM STAIN STAT 09/06/2018 3:48 PM QUOTATION CLERK URINE CULTURE STAT 09/06/2018 3:48 PM QUOTATION CLERK POC GLUCOSE Routine 09/06/2018 10:59 AM QUOTATION CLERK THYROID STIMULATING Timed 09/06/2018 HORMONE 9:32 AM QUOTATION CLERK PARTIAL THROMBOPLASTIN STAT 09/06/2018 TIME (PTT) 9:32 AM QUOTATION CLERK PROTHROMBIN TIME WITH INR STAT 09/06/2018 9:32 AM QUOTATION CLERK ESTIMATED GFR STAT 09/06/2018 9:32 AM QUOTATION CLERK CREATINE KINASE, TOTAL STAT 09/06/2018 (CPK) 9:32 AM QUOTATION CLERK B NATRIURETIC PEPTIDE STAT 09/06/2018 9:32 AM QUOTATION CLERK TROPONIN STAT 09/06/2018 9:32 AM QUOTATION CLERK MAGNESIUM LEVEL STAT 09/06/2018 9:32 AM QUOTATION CLERK PHOSPHORUS LEVEL STAT 09/06/2018 9:32 AM QUOTATION CLERK COMPREHENSIVE METABOLIC STAT 09/06/2018 PANEL 9:32 AM QUOTATION CLERK HC COMPLETE BLD COUNT STAT 09/06/2018 W/AUTO DIFF 9:32 AM QUOTATION CLERK XR CHEST 1 VW PORTABLE STAT 09/06/2018 9:11 AM QUOTATION CLERK ECG ED PRELIMINARY Routine 09/06/2018 INTERPRETATION 9:05 AM QUOTATION CLERK [facility], E/M Routine 09/06/2018 30-74 MINUTES 9:05 AM QUOTATION CLERK ECG 12-LEAD STAT 09/06/2018 8:53 AM QUOTATION CLERK EP CARDIOVERSION W BLACK Routine 06/23/2018 7:35 [...] CDT ECHOCARDIOGRAM WITH Routine 05/17/2018 AGITATED SALINE (86107) 2:45 PM CDT ZZESTIMATED GFR STAT 05/17/2018 [...] Routine 01/27/2018 INTERPRETATION 1:23 AM CDT after 11/17/2017 Results * POC glucose (09/07/2018 3:39 PM QUOTATION CLERK) Only the most recent of 7 results within the time period is included. POC glucose 141 (H) 65 - 99 mg/dL [facility] Comment: [facility] Meter ID: [id number] Broach Operator: Corey Koch Performing Organization Address City/State/Zipcode [place] [address] [place] [address] PATHOLOGY AND GENOMIC MEDICINE [facility] [address] [address] [place] [address] [facility] * ECG 12 lead (09/07/2018 11:25 AM QUOTATION CLERK) Only the most recent of 8 results [...] leads- Narrative Performed At Performing Organization Address City/State/Zipcode Phone Number [facility] [address] [place] [address] * Estimated GFR (09/07/2018 5:54 AM QUOTATION CLERK) Only the most recent of 2 results within the time period is included. Estimated GFR 77 mL/min/1.73 m2 [facility] Comment: [facility] CatergoryUnitsInte rpretation G1 >=90 Normal or high G2 60-89Mildly decreased [id number] Mildly to moderately decreased C7d19-86 Moderately to severely decreased G4 15-29Severely decreased G5 <15Kidney failure The eGFR was calculated using the Chronic Kidney Disease Epidemiology Collaboration (CKD-EPI) equation. Interpretation is based on recommendations of the National Kidney Foundation-Kidney Disease Outcomes Quality Initiative (NKF-KDOQI) published in 2014. Specimen Plasma specimen Performing Organization Address City/State/Zipcode [place] [address] [address] [place] [id number] PATHOLOGY AND GENOMIC MEDICINE [facility] [address] * CBC with platelet and differential (09/07/2018 5:54 AM QUOTATION CLERK) Only the most recent of 7 results within the time period is included. WBC 5.69 4.50 - 11.00 k/uL [facility] RBC 4.27 (L) 4.40 - 6.00 m/uL [facility] HGB 13.5 (L) 14.0 - 18.0 g/dL [facility] HCT 39.0 (L) 41.0 - 51.0 % [facility] MCV 91.3 82.0 - 100.0 fL [facility] MCH 31.6 27.0 - 34.0 pg [facility] MCHC 34.6 31.0 - 37.0 g/dL [facility] RDW - SD 46.5 37.0 - 55.0 fL [facility] MPV 10.7 8.8 - 13.2 fL [facility] Platelet count 166 150 - 400 k/uL [facility] Nucleated RBC 0.00 /100 WBC [facility] Neutrophils 62.3 39.0 - 69.0 % [facility] Lymphocytes 25.5 25.0 - 45.0 % [facility] Monocytes 8.3 0.0 - 10.0 % [facility] Eosinophils 2.3 0.0 - 5.0 % [facility] Basophils 0.9 0.0 - 1.0 % [facility] Specimen Blood Performing Organization Address City/State/Zipcode Phone Number [facility] [place] [id number] [place] [address] [place] [address] [address]OLOG[address] [facility] [id number] [place] [address] [place], [place] [id number] [place] [address] * Comprehensive metabolic panel (09/07/2018 5:54 AM QUOTATION CLERK) Only the most recent of 6 results within the time period is included. Sodium 141 135 - 148 mEq/L [facility] Potassium 3.6 3.5 - 5.0 mEq/L [facility] Chloride 102 98 - 112 mEq/L [facility] CO2 29 24 - 31 mEq/L [facility] Anion gap 10@ANIO 7 - 15 mEq/L [facility] BUN 14 8 - 23 mg/dL [facility] Creatinine 0.90 0.70 - 1.20 mg/dL [facility] Glucose 199 (H) 65 - 99 mg/dL [facility] Calcium 8.6 (L) 8.8 - 10.2 mg/dL [facility] Protein 6.3 6.3 - 8.3 g/dL [facility] Comment: [facility] 4.6-7.0 g/dL 1 week 4.4-7.6 g/dL 7 months-1year 5.1-7.3 g/dL 1-2 years5.6-7 .5 g/dL >3 years6.0-8 .0 g/dL 18-150 6.3-8.3 g/dL Albumin 3.5 3.5 - 5.0 g/dL [facility] A/G ratio 1.2 0.7 - 3.8 [facility] Alkaline phosphatase 62 40 - 129 U/L [facility] AST 16 10 - 50 U/L [facility] ALT 18 5 - 50 U/L [facility] Total bilirubin 0.5 0.0 - 1.2 mg/dL [facility] Specimen Plasma specimen Performing Organization Address [facility] Phone Number [address] [place] [address] PATHOLOGY AND GENOMIC MEDICINE [address] * Urinalysis screen and microscopy, with reflex to culture (09/06/2018 3:50 PM QUOTATION CLERK) Specimen site Clean catch [facility] Color, UA Yellow [facility] Appearance, UA Clear [facility] Specific gravity, UA 1.021 1.001 - 1.035 [facility] pH, UA 6.0 5.0 - 8.5 [facility] Protein, UA Negative Negative [facility] Glucose, UA 3+ (A) Negative [facility] Ketones, UA Negative Negative [facility] Bilirubin, UA Negative Negative [facility] Blood, UA Moderate (A) Negative [facility] Nitrite, UA Negative Negative [facility] Urobilinogen, UA 4.0 (A) <2.0 [facility] Leukocyte esterase, UA Negative Negative [facility] WBC, UA 6-10 (H) 0 - 1 /HPF [facility] RBC, UA 21-40 (H) 0 - 5 /HPF [facility] Bacteria, UA None seen None seen [facility] Yeast, UA None seen [facility] Yeast with pseudohyphae, None seen [facility] Specimen Urine Performing Organization Address [facility] Phone Number [facility] DEPARTMENT [address] [place] [address] PATHOLOGY AND GENOMIC MEDICINE [address] * Gram stain (09/06/2018 3:48 PM QUOTATION CLERK) Gram stain result No WBC's or organisms seen. IRV[facility] GARCIA Comment: HOSPITAL Specimen Information Specimen Source: Urine Specimen Site: Clean catch Specimen Urine Performing Organization Address [facility] Phone Number [facility] [place] [place] [address] PATHOLOGY AND GENOMIC MEDICINE [address] * Urine culture (09/06/2018 3:48 PM QUOTATION CLERK) Urine culture isolate IRVIN CALDWELLIST ~No growth HOSPITAL after 10 hours No growth after 24 hours Comment: Specimen Information Specimen Source: Urine Specimen Site: Clean catch Specimen Urine Performing Organization Address [facility] Phone Number [facility] [place] [place] [address] PATHOLOGY AND GENOMIC MEDICINE [address] * Troponin (09/06/2018 9:32 AM QUOTATION CLERK) Only the most recent of 4 results within the time period is included. Troponin <0.300 0.000 - 0.300 ng/mL [facility] Comment: [facility] 0.30 - 1.49 ng/mlMay indicate increased risk of acute coronary syndrome. >=1.5 ng/ml Consistent with acute myocardial infarction. The diagnostic value of a single normal or non-diagnostic result is questionable.Serial samples at 2-6 hour intervals are required to rule out acute myocardial injury. Specimen Plasma specimen Performing Organization Address [facility] Phone Number [facility] DEPARTMENT [address] [place] [address] PATHOLOGY AND GENOMIC MEDICINE [address] * Partial thromboplastin time, activated (09/06/2018 9:32 AM QUOTATION CLERK) Only the most recent of 3 results within the time period is included. PTT 29.8 23.0 - 36.0 sec [facility] Comment: [facility] PTT therapeutic range for unfractionated heparin is 61.0-112.0 seconds which corresponds to Anti-Xa 0.3-0.7 U/ml. Specimen Blood Performing Organization Address [facility] Phone Number [address] [place] [address] PATHOLOGY AND GENOMIC MEDICINE [address] * Prothrombin time with INR (09/06/2018 9:32 AM QUOTATION CLERK) Only the most recent of 4 results within the time period is included. Prothrombin time 15.0 (H) 11.5 - 14.5 sec [facility] INR 1.2 [facility] Comment: [facility] The International Normalized Ratio (INR) is a therapeutic monitoring tool for patients who are stable on oral anticoagulant therapy. An INR of 2.0-3.0 is suggested for deep vein thrombosis/pulmonary embolism. Specimen Blood Performing Organization Address [facility] Phone Number [address] [place] [address] PATHOLOGY AND GENOMIC MEDICINE [address] * Thyroid stimulating hormone (09/06/2018 9:32 AM QUOTATION CLERK) Only the most recent of 3 results within the time period is included. TSH 7.44 (H) 0.27 - 4.20 uIU/mL [facility] Specimen Plasma specimen Performing Organization Address [facility] Phone Number [address] [place] [address] PATHOLOGY AND GENOMIC MEDICINE [address] * Phosphorus level (09/06/2018 9:32 AM QUOTATION CLERK) Only the most recent of 2 results within the time period is included. Phosphorus 3.3 2.4 - 4.5 mg/dL [facility] Specimen Plasma specimen Performing Organization Address [facility] Phone Number [address] [place] [address] PATHOLOGY AND GENOMIC MEDICINE [address] * B natriuretic peptide (09/06/2018 9:32 AM QUOTATION CLERK) BNP 365 (H) 0 - 100 pg/mL [facility] Specimen Blood Performing Organization Address [facility] Phone Number [address] [place] [address] PATHOLOGY AND GENOMIC MEDICINE [address] * Magnesium level (09/06/2018 9:32 AM QUOTATION CLERK) Only the most recent of 2 results within the time period is included. Magnesium 1.8 1.6 - 2.4 mg/dL [facility] Specimen Plasma specimen Performing Organization Address [facility] Phone Number [address] [place] [address] PATHOLOGY AND GENOMIC MEDICINE [address] * Creatine kinase, total (CPK) (09/06/2018 9:32 AM QUOTATION CLERK) Creatine kinase 76 39 - 308 U/L [facility] Specimen Plasma specimen Performing Organization Address [facility] Phone Number [address] [place] [address] PATHOLOGY AND GENOMIC MEDICINE [address] * XR Chest 1 Vw Portable (09/06/2018 9:11 AM QUOTATION CLERK) Only the most recent of 2 results within the time period is included. Narrative Performed At EXAMINATION:XR CHEST 1 VW PORTABLE [facility] CLINICAL HISTORY:tachycardia COMPARISON:None. IMPRESSION: 1.Lungs are clear. 2.Normal heart size. Atherosclerotic thoracic aorta. 3.Broken superior and inferior sternotomy wires, unchanged. [id number] Procedure Note Hm Interface, Radiology Results Incoming - 09/06/2018 9:16 AM QUOTATION CLERK EXAMINATION: XR CHEST 1 VW PORTABLE CLINICAL HISTORY: tachycardia COMPARISON: None. IMPRESSION: 1. Lungs are clear. 2. Normal heart size. Atherosclerotic thoracic aorta. 3. Broken superior and inferior sternotomy wires, unchanged. [id number] Performing Organization Address [facility] Phone Number [facility] [address] [place] [address] * ECG ED Preliminary Interpretation - Not an Order (09/06/2018 9:05 AM QUOTATION CLERK) Only the most recent of 4 results within the time period is included. Narrative Performed At Matt Johns MD 09/06/20189:16 PM ECG ED Preliminary Interpretation - Not an Order Performed by: Matt Johns MD Authorized by: Matt Johns MD ECG reviewed by ED Physician in the absence of a pawn shop keeper: yes Interpretation: Interpretation: abnormal Rate: ECG rate:98 ECG rate assessment: normal Rhythm: Rhythm: atrial fibrillation Ectopy: Ectopy: none QRS: QRS axis:Normal QRS intervals:Normal Conduction: Conduction: normal ST segments: ST segments:Non-specific T waves: T waves: inverted Inverted:III and aVF * CRITICAL CARE (09/06/2018 9:05 AM QUOTATION CLERK) Narrative Performed At Matt Johns MD 09/06/20189:16 PM Critical Care Performed by: Matt Johns MD Authorized by: Matt Johns MD Critical [...] CDT) Narrative Performed At Performing Organization Address [facility] Phone Number [facility] [address] [place] [address] * XR Chest 2 Vw (06/22/2018 2:50 PM CDT) Narrative Performed At [facility], 06/22/2018 RADIBRIDGETET Clinical history:Preoperative evaluation Technique: PA and lateral [...] 2018. Performing Organization Address City/State/Zipcode Phone Number [facility] [address] [place] [address] * Estimated GFR (06/22/2018 2:10 PM CDT) Only the most recent of 6 results within the time period is included. GFR Non Af Amer 64 mL/min/1.73 m2 [facility] DEPARTMENT OF PATHOLOGY AND GENOMIC MEDICINE GFR Af Amer 77 mL/min/1.73 m2 [facility] DEPARTMENT OF Comment: PATHOLOGY AND [...] specimen Performing Organization Address City/State/Zipcode Phone Number [address] [place] [address] PATHOLOGY AND GENOMIC MEDICINE * Basic metabolic panel (06/22/2018 2:10 PM CDT) Only the most recent of 3 results within the time period is included. Sodium 141 135 - 148 mEq/L [facility] DEPARTMENT OF PATHOLOGY AND GENOMIC MEDICINE Potassium 4.1 3.5 - 5.0 mEq/L [facility] DEPARTMENT OF PATHOLOGY AND GENOMIC MEDICINE Chloride 102 98 - 112 mEq/L [facility] DEPARTMENT OF PATHOLOGY AND GENOMIC MEDICINE CO2 29 24 - 31 mEq/L [facility] DEPARTMENT OF PATHOLOGY AND GENOMIC MEDICINE Anion gap 10@ANIO 7 - 15 mEq/L [facility] DEPARTMENT OF PATHOLOGY AND GENOMIC MEDICINE BUN 19 8 - 23 mg/dL [facility] DEPARTMENT OF PATHOLOGY AND GENOMIC MEDICINE Creatinine 1.1 0.7 - 1.2 mg/dL [facility] DEPARTMENT OF PATHOLOGY AND GENOMIC MEDICINE Glucose 263 (H) 65 - 99 mg/dL [facility] DEPARTMENT OF PATHOLOGY AND GENOMIC MEDICINE Calcium 9.2 8.8 - 10.2 mg/dL [facility] DEPARTMENT OF PATHOLOGY AND GENOMIC MEDICINE Specimen Plasma specimen Performing Organization Address [facility] Phone Number [address] [place] [address] PATHOLOGY AND GENOMIC MEDICINE * T4, free (06/10/2018 9:52 AM CDT) T4, free 0.96 0.90 - 1.70 ng/dL [facility] DEPARTMENT OF PATHOLOGY AND GENOMIC MEDICINE Specimen Plasma specimen Performing Organization Address [facility] Phone Number [address] [place] [address] PATHOLOGY [facility] * CBC hemogram (05/18/2018 5:16 AM CDT) WBC 5.84 4.50 - 11.00 k/uL [facility] DEPARTMENT OF PATHOLOGY AND GENOMIC MEDICINE RBC 4.27 (L) 4.40 - 6.00 m/uL [facility] DEPARTMENT OF PATHOLOGY AND GENOMIC MEDICINE HGB 12.9 (L) 14.0 - 18.0 g/dL [facility] DEPARTMENT OF PATHOLOGY AND GENOMIC MEDICINE HCT 38.4 (L) 41.0 - 51.0 % [facility] DEPARTMENT OF PATHOLOGY AND GENOMIC MEDICINE MCV 89.9 82.0 - 100.0 fL [facility] DEPARTMENT OF PATHOLOGY AND GENOMIC MEDICINE MCH 30.2 27.0 - 34.0 pg [facility] DEPARTMENT OF PATHOLOGY AND GENOMIC MEDICINE MCHC 33.6 31.0 - 37.0 g/dL [facility] DEPARTMENT OF PATHOLOGY AND GENOMIC MEDICINE RDW - SD 46.7 37.0 - 55.0 fL [facility] DEPARTMENT OF PATHOLOGY AND GENOMIC MEDICINE MPV 11.3 8.8 - 13.2 fL [facility] DEPARTMENT OF PATHOLOGY AND GENOMIC MEDICINE Platelet count 154 150 - 400 k/uL [facility] DEPARTMENT OF PATHOLOGY AND GENOMIC MEDICINE Nucleated RBC 0.00 /100 WBC [facility] DEPARTMENT OF PATHOLOGY AND GENOMIC MEDICINE Specimen Blood Performing Organization Address [facility]/Zipcode Phone Number [facility] [place] [address] [place] [address] PATHOLOGY AND GENOMIC MEDICINE * Lipid panel (05/18/2018 5:16 AM CDT) Cholesterol 129 <200 mg/dL [facility] DEPARTMENT OF PATHOLOGY AND GENOMIC MEDICINE Triglycerides 171 (H) <150 mg/dL [facility] DEPARTMENT OF PATHOLOGY AND GENOMIC MEDICINE HDL cholesterol 24 (L) >40 mg/dL [facility] DEPARTMENT OF PATHOLOGY AND GENOMIC MEDICINE LDL cholesterol 80Comment: Result obtained by <100 mg/dL [facility] DEPARTMENT OF direct LDL measurement PATHOLOGY AND GENOMIC MEDICINE Lipid panel SeeBelow [facility] DEPARTMENT OF interpretation Comment: PATHOLOGY [...] mg/dL) Specimen Plasma specimen Performing Organization Address City/State/Zipcode Phone Number [facility] [place] [address] [place] [address] PATHOLOGY AND GENOMIC MEDICINE * Echocardiogram complete [...] [facility] AoV area i VTI BSA [place] 1.57 cm2/m2 [facility] RVSP 31.46 mmHg [...] LV FS Teich 2D 27.87 [facility] [place] Grad 7.23 [facility] [place] Diat [place]ylon 1.34 [facility] AR [...] LV EF,BP 52.80 % [facility] Darrick Forreston,d A2C 6.97 cm [facility] Darrick Forreston,d A4C 7.45 cm [facility] Darrick Forreston,s A2C 5.68 cm [facility] Darrick Forreston,s A4C 6.48 cm [facility] LV SV,A2C 39.13 % [facility] LV SV,A4C 44.00 % [facility] LV SV,BP 41.58 % [facility] LV Vol,d BP 78.75 ml [facility] LV Vol,s BP 37.17 nl [facility] LV SI MOD BP BSA [place] 22.64 ml/m2 [facility] LV Vol Index s bpmod BSA 42.87 ml/m2 [facility] Eriberto PV Vmn 20.24 m/s [facility] LVOT [...] to assess diastolic filling. Performing Organization Address [facility] Phone Number [facility] [address] [place] [address] * Cv electrophysiology procedure (04/04/2018 10:53 AM CDT) Narrative Performed At Performing Organization Address [facility] Phone Number [facility] [address] [place] [address] after 11/17/2017 Insurance Payer Benefit Subscriber ID Type Phone Address Plan / Group MEDICARE MEDICARE xxxxxxxxxx Medicare [id number] A [place] B BCBS BCBS xxxxxxxxx PPO CHOICE PPO/MANJIT L EMPL PPO DR luna ([place]) [place] [address] Advance Directives Patient has advance care planning documents, and code status on file. For more i nformation, please contact: Irvin Garcia [address] [place] [address] Date Inactivated Comments Code Status Date Activated 05/18/2018 8:32 PM Full Code 05/17/2018 2:43 PM Code Status decision reached by: Patient
[2018-11-18 12:24] LABS: BASOPHILS # (AUTO) 0.1 (0.0-0.1); BASOPHILS % 0.9 % (0.0-1.0); EOSINOPHILS # (AUTO) 0.2 (0.0-0.4); EOSINOPHILS % 4.1 % (0.0-6.0); HEMATOCRIT 35.8 % (38.2-49.6); HEMOGLOBIN 12.5 g/dL (14.0-18.0); LYMPHOCYTES # (AUTO) 1.6 (1.0-3.2); LYMPHOCYTES % 26.7 % (18.0-39.1); MEAN CORPUSCULAR HEMOGLOBIN 31.6 pg (28-32); MEAN CORPUSCULAR HGB CONC 34.9 g/dL (31-35); MEAN CORPUSCULAR VOLUME 90.4 fL (81-99); MONOCYTES # (AUTO) 0.5 (0.2-0.8); MONOCYTES % 8.4 % (4.4-11.3); NEUTROPHILS # (AUTO) 3.4 (2.1-6.9); NEUTROPHILS % 59.4 % (38.7-80.0); PLATELET COUNT 141 x10e3/uL (140-360); RED BLOOD COUNT 3.96 x10e6/uL (4.3-5.7); RED CELL DISTRIBUTION WIDTH 14.2 % (11.7-14.4)
[2018-11-18 12:51] LABS: ANION GAP 15.4 mmol/L (8-16); BLOOD UREA NITROGEN 16 mg/dL (7-26); BUN/CREATININE RATIO 18 (6-25); CALCIUM 9.3 mg/dL (8.4-10.2); CARBON DIOXIDE 28 mmol/L (22-29); CHLORIDE 103 mmol/L (98-107); CREATININE, SERUM 0.88 mg/dL (0.72-1.25); EST GLOMERULAR FILTRATION RATE > 60 ML/MIN (60-); GLUCOSE 125 mg/dL (74-118); POTASSIUM 3.4 mmol/L (3.5-5.1); SODIUM 143 mmol/L (136-145)
--- NOTE | 2018-11-18 14:19 | Diagnostic Imaging Report ---
Exam: KUB - 1 view Clinical History: Ureteral stent; pre-op Comparison: None. Findings: There is a left-sided internal ureteral stent with proximal pigtail overlying the expected location of the left kidney and the distal pigtail overlying the expected location of the bladder. There are left lower pole renal stones measuring 4 mm and 2 mm. Status post cholecystectomy. Nonobstructive bowel gas pattern. No acute bony findings. Impression: Left sided ureteral stent as above. Left lower pole renal stones measuring 4 mm and 2 mm. Signed by: Dr. Faizan Castro MD on 11/18/2018 2:16 PM
--- NOTE | 2018-11-18 18:03 | Diagnostic Imaging Report ---
Retrograde urogram Indications: Stones, left kidney/ureter ^[id number] ^1327 ^C-ARM LT. RETRO.PYELOGRAMS, STONE EXTRACTIONS Comparison: Abdomen x-ray 11/18/2018, CT urogram 09/02/2018 RADIATION DOSE: Fluoroscopy Time: 00:00:54 hh:mm:ss Dose (Kerma) Area Product: 464.32 cGycm2 Air Kerma (AK) value has been reviewed. It is below the limits set by the Radiation Protocol Committee (RPC) committee. Findings: Left ureteral stent is identified on power plant electrician image. This was removed. A wire and catheter were inserted into the left ureter and renal collecting system for stone ablation. The collecting system fills normally. A left ureteral stent was placed at the conclusion of the procedure. IMPRESSION: Renal stone ablation and stent placement. Signed by: Dr. Jose Manuel uZniga MD on 11/18/2018 6:00 PM
[2018-11-18 19:00] VITALS: BP 170/76
--- NOTE | 2018-12-19 11:28 | Operative Report ---
DATE OF PROCEDURE: 11/18/2018 SURGEON: Myron Boss MD PREOPERATIVE DIAGNOSES: 1. Left ureterolithiasis. 2. Left nephrolithiasis. 3. Left indwelling ureteral stent. 4. Left hydronephrosis. POSTOPERATIVE DIAGNOSES: 1. Left ureterolithiasis. 2. Left nephrolithiasis. 3. Left indwelling ureteral stent. 4. Left hydronephrosis. OPERATIONS PERFORMED: Note these were all staged procedures as part of a multi-stage and multi-step process in managing the patient's extensive urolithiasis. 1. Cystourethroscopy with complicated removal of left indwelling ureteral stent (surgery was performed with separate scope for the diagnosis of the stent). 2. Left ureteroscopy with stone manipulation and extraction (surgery was performed for diagnosis of ureteral stones). 3. Left ureteroscopy with stone manipulation and extraction (separate repeated procedure was performed for the left kidney stones). 4. Radiological Services for supervision and interpretation of ureteroscopy. 5. Interpretation of retrograde ureteropyelography. 6. Cystourethroscopy with insertion of left indwelling ureteral stent (surgery was performed for diagnosis of hydronephrosis). 7. Supervision of fluoroscopy, no radiologist was present. ANESTHESIA: General. COMPLICATIONS: None. CLINICAL SUMMARY: Axel Villanueva is an 88-year-old man, who had extensive urolithiasis. He underwent prior stone procedures. He has a stent in place and is brought to hopefully render him stone free. He is aware of the risks of bleeding, infection, injury to adjacent structures, need for additional procedures, and elected to proceed. PROCEDURE IN DETAIL: Informed consent was verified. Axel Villanueva was properly identified, taken to the operating room, placed on the cystoscopy table in supine position. Anesthesia was uneventfully begun. The patient was then carefully and gently re-positioned in dorsal lithotomy position with all pressure points well padded. His genitalia were prepared and draped in usual sterile fashion. The 22.5-Wolof cystocope sheath with a visual obturator in place was atraumatically inserted into the patient's urethra. It was guided on the unremarkable urethra through the normal sphincteric region through the prostate bed, was significant for visually obstructing BPH the patient's bladder. Panendoscopy revealed trabeculations and the stent emerging from the left ureteral orifice. A guidewire was then placed along side of the stent and guided to the level of the patient's kidney. The stent was then grasped, completely removed, and discarded. Similarly, the ureteroscope was then placed along side of the stent and up into the distal left ureter where no stones were identified, but a secondary guidewire was left in place. Flexible ureteroscopy sheath was then introduced over the secondary guidewire and guided to the level of the proximal ureter where we identified calcifications. Flexible ureteroscope was then placed through the flexible ureteroscopy sheath. There were numerous stones within the left ureter. A true Steinstrasse was obtained. We utilized nitinol tipless basket to make countless passes with the ureteroscope through the flexible ureteroscopy sheath in order to take out numerous ureteral stones. Once the ureter was free of stones, we brought the flexible ureteroscope to the kidney. Panendoscopy revealed Karthikeyan plaques throughout and there was a tremendous number of stones present within the kidney. These stones are grasped with nitinol tipless basket and extracted. Multiple passes were made to extract numerous stones. The stones were all sent for chemical analysis and identification. No additional stone burden remained except for some very fine sand, which should be passable. Due to the significant amount of manipulation, ureteral stenting was necessitated so, we verified there were no significantly sized stones remaining both in the kidneys as well as in the ureter. Once this was accomplished under fluoroscopic guidance, a left sided indwelling ureteral stent was then placed, it was coiled in the patient's kidney as well as the patient's bladder. The retaining suture was left long and taped to the penis. Interpretation Of Retrograde Ureteropyelography: Contrast was instilled in a retrograde fashion via the ureteroscope. There was chronic fullness of the upper collecting system. There was no extravasation, filling defect corresponding to the stones that we extracted. The stent was in good position, coiled in the patient's kidney as well as the patient's bladder at the end of the case. Belladonna and opium suppository was placed. The patient was uneventfully reversed from anesthesia and taken to the recovery room in stable condition. There were no complications to the procedure. The patient tolerated the procedure well. Expressive postoperative instructions were given and we will follow the patient up in the office at which point in time the stent will be removed. Myron MD DANIEL Boss /[id number]
== END | disposition home or self-care (01) ==
LOC: OR 11:41
PROVIDERS: ATTEND Urology
DX: N20.0 Calculus of kidney (principal); N20.1 Calculus of ureter; N13.30 Unspecified hydronephrosis; Z46.6 Encounter for fitting and adjustment of urinary device; N40.1 Benign prostatic hyperplasia with lower urinary tract symptoms; N13.8 Other obstructive and reflux uropathy; N28.1 Cyst of kidney, acquired; R35.1 Nocturia; N32.89 Other specified disorders of bladder; N28.89 Other specified disorders of kidney and ureter; R81 Glycosuria; I10 Essential (primary) hypertension; E11.9 Type 2 diabetes mellitus without complications; Z91.048 Other nonmedicinal substance allergy status; I25.810 Atherosclerosis of coronary artery bypass graft(s) without angina pectoris; Z88.6 Allergy status to analgesic agent; Z88.1 Allergy status to other antibiotic agents; Z79.02 Long term (current) use of antithrombotics/antiplatelets; Z79.84 Long term (current) use of oral hypoglycemic drugs; Z95.1 Presence of aortocoronary bypass graft; Z95.0 Presence of cardiac pacemaker
CPT/HCPCS: 36415; 52332; 52352; 74420; 80048; 84550; 85025; 88300; C2617; J0696; J1100; J1170; J1580; J2001; J2270; J2405; J2704; J2765; Q9967; 74018

== ENCOUNTER 2020-10-13 12:37 | Emergency (ER) | payer MEDICARE, BC ==
[~2020-10-13] VITALS: Ht 165.1 cm; Wt 72.6 kg
[~2020-10-13 12:37] MED LIST changes: -BELLADONNA/OPIUM 30 MG SUPP RC ONE; -CEFTRIAXONE SOD 1 GM/NS 50 ML 50 ML IV ONE; -DEXAMETHASONE SOD PHOS INJ 4 MG/ML VIAL ONE; -FENTANYL CITRATE/PF 100MCG/2 ML INJ ONE; -GENTAMICIN 80MG/NS 100 ML 100 ML IV ONE; -HYDROMORPHONE 2MG/ML 2 MG/ML ML ONE; -IOPAMIDOL 610MG/1ML 300 MG/ML VIAL IV ONE; -LIDOCAINE HCL 2% LOCAL INJ 5 ML SDV VIAL INJ ONE; -METOCLOPRAMIDE HCL 10 MG/2ML VIAL ONE; -MORPHINE SULFATE INJ 4 MG/ML INJ 1ML ONE; -ONDANSETRON HCL INJ 2MG/ML 2ML 2 MG/ML VIAL ONE; -PROPOFOL IV EMULSION 10 MG/ML 20 ML VIAL ONE; -SEVOFLURANE INHAL SOLN 250 ML PEN BTL ONE
== END 2020-10-13 13:23 | disposition home or self-care (01) ==
LOC: ER 12:40
DX: M54.5 Low back pain (principal); I10 Essential (primary) hypertension; E11.9 Type 2 diabetes mellitus without complications; E78.5 Hyperlipidemia, unspecified; I50.9 Heart failure, unspecified; I48.91 Unspecified atrial fibrillation; I25.10 Atherosclerotic heart disease of native coronary artery without angina pectoris; K21.9 Gastro-esophageal reflux disease without esophagitis; E78.00 Pure hypercholesterolemia, unspecified; Z95.1 Presence of aortocoronary bypass graft
CPT/HCPCS: 99282

== ENCOUNTER 2021-03-17 10:18 | Emergency (ER) | payer MEDICARE, BC ==
[~2021-03-17] VITALS: Ht 165.1 cm; Wt 72.6 kg
[2021-03-17] MEDS ORDERED: DICYCLOMINE HCL 20 MG/2 ML VIAL IM ONE (11:15)
[2021-03-17 11:19] LABS: BASOPHILS % 0.4 % (0.0-1.0); EOSINOPHILS # (AUTO) 0.1 (0.0-0.4); EOSINOPHILS % 1.9 % (0.0-6.0); HEMATOCRIT 35.1 % (38.2-49.6); HEMOGLOBIN 11.7 g/dL (14.0-18.0); LYMPHOCYTES # (AUTO) 1.1 (1.0-3.2); LYMPHOCYTES % 18.7 % (18.0-39.1); MEAN CORPUSCULAR HEMOGLOBIN 31.5 pg (28-32); MEAN CORPUSCULAR HGB CONC 33.3 g/dL (31-35); MEAN CORPUSCULAR VOLUME 94.6 fL (81-99); MONOCYTES # (AUTO) 0.4 (0.2-0.8); MONOCYTES % 7.7 % (4.4-11.3); NEUTROPHILS % 70.8 % (38.7-80.0); PLATELET COUNT 138 x10e3/uL (140-360); RED BLOOD COUNT 3.71 x10e6/uL (4.3-5.7); RED CELL DISTRIBUTION WIDTH 14.1 % (11.7-14.4)
[2021-03-17 11:42] LABS: INR 2.83; PROTHROMBIN TIME 30.5 seconds (11.9-14.5)
[2021-03-17 11:43] LABS: PARTIAL THROMBOPLASTIN TIME 41.7 seconds (23.8-35.5)
[2021-03-17 11:46] LABS: ALANINE AMINOTRANSFERASE 24 IU/L (0-55); ALBUMIN 3.5 g/dL (3.5-5.0); ALBUMIN/GLOBULIN RATIO 1.2 (0.8-2.0); ALKALINE PHOSPHATASE 88 IU/L (40-150); BLOOD UREA NITROGEN 17 mg/dL (7-26); BUN/CREATININE RATIO 19 (6-25); CALCIUM 8.8 mg/dL (8.4-10.2); CARBON DIOXIDE 24 mmol/L (22-29); CHLORIDE 102 mmol/L (98-107); CREATINE KINASE 50 IU/L (30-200); CREATININE, SERUM 0.89 mg/dL (0.72-1.25); EST GLOMERULAR FILTRATION RATE > 60 ML/MIN (60-); GLUCOSE 370 mg/dL (74-118); MAGNESIUM 1.7 MG/DL (1.3-2.1); SODIUM 137 mmol/L (136-145)
[2021-03-17 11:57] LABS: THYROID STIMULATING HORMONE 1.867 uIU/mL (0.350-4.940)
[2021-03-17 12:14] LABS: CLARITY,URINE CLEAR (CLEAR); COLOR,URINE YELLOW (YELLOW); KETONES,URINE NEGATIVE (NEGATIVE); LEUKOCYTE ESTERASE ,URINE NEGATIVE (NEGATIVE); NITRITE,URINE NEGATIVE (NEGATIVE); PROTEIN,URINE DIPSTICK NEGATIVE (NEGATIVE); URINE UROBILINOGEN 1 mg/dL (0.2 - 1)
[2021-03-17 12:25] LABS: BACTERIA,URINE RARE /HPF; EPITHELIAL CELLS,URINE RARE /LPF; RBC,URINE 0-5 /HPF (0-5); WBC,URINE (MAN) 0-5 /HPF (0-5)
[2021-03-17] MEDS ORDERED: FUROSEMIDE INJ 10 MG/ML 4 ML VIAL IV ONE (13:15)
[2021-03-17 13:34] VITALS: BP 120/62
== END 2021-03-17 13:35 | disposition home or self-care (01) ==
LOC: ER 11:05
DX: R53.1 Weakness (principal); I50.9 Heart failure, unspecified; E11.65 Type 2 diabetes mellitus with hyperglycemia; I10 Essential (primary) hypertension; E78.5 Hyperlipidemia, unspecified; I48.91 Unspecified atrial fibrillation; Z20.822 Contact with and (suspected) exposure to COVID-19; Z95.1 Presence of aortocoronary bypass graft
CPT/HCPCS: 36415; 70450; 71045; 80053; 81001; 82550; 82553; 83735; 83880; 84443; 84484; 85025; 85610; 85730; 87086; 93005; 99283; J1940; U0002

== ENCOUNTER 2021-06-02 18:43 | Emergency (ER) | payer MEDICARE, BC ==
[~2021-06-02] VITALS: Ht 165.1 cm; Wt 72.6 kg
[2021-06-02] MEDS: ACETAMINOPHEN 325 MG TAB PO ONE (20:37)
[2021-06-02] MEDS: CASIRIVIMAB/IMDEVIMAB 10 ML in SODIUM CHLORIDE 0.9% 100 ML IV ONE (22:44)
[2021-06-03] MEDS ORDERED: HYDRALAZINE HCL 25 MG TAB ONE (00:23)
[2021-06-03] MEDS: HYDRALAZINE HCL 25 MG TAB PO ONE (00:25)
== END 2021-06-03 01:30 | disposition left against medical advice (07) ==
LOC: ER 19:31
DX: U07.1 COVID-19 (principal); R05 Cough; R09.81 Nasal congestion; I11.0 Hypertensive heart disease with heart failure; I50.9 Heart failure, unspecified; I25.10 Atherosclerotic heart disease of native coronary artery without angina pectoris; Z95.1 Presence of aortocoronary bypass graft; I48.91 Unspecified atrial fibrillation; Z79.01 Long term (current) use of anticoagulants; E11.9 Type 2 diabetes mellitus without complications; Z79.84 Long term (current) use of oral hypoglycemic drugs; K21.9 Gastro-esophageal reflux disease without esophagitis; E78.5 Hyperlipidemia, unspecified; E78.00 Pure hypercholesterolemia, unspecified; Z79.899 Other long term (current) drug therapy
CPT/HCPCS: 71045; 99283; U0002